=== PATIENT | male | born 1960 | race African-American/Black ===

== ENCOUNTER 2020-05-16 06:00 | Inpatient (IN) | payer OTHER ==
[~2020-05-16] VITALS: Ht 185.4 cm; Wt 90.7 kg
--- NOTE | 2020-05-16 06:20 | NUR ---
ED Nurse Note: PT walked in from home. He is very weak and has trouble transfering and walking. He is axox4, His vitals are stable on RA. He states that he had left flank pain with pain 8/10 starting at 23:00 the night previous. He is only speaking in one word answers during assement. He denies n/v/d
--- NOTE | 2020-05-16 06:29 | Emergency Room Report ---
History of Present Illness General Chief Complaint: Dyspnea/Respdistress Source: Patient Present Illness HPI The patient presents complaining about left flank pain. He also states that at 11 PM he was short of breath. He is not taking medication. He rates the pain 8/10 at this time. Aching. He says that a month ago he was treated for urinary tract infection. He had antibiotics at that time. Patient denies chest pain, productive cough, sore throat, nausea, vomiting, diarrhea, dysuria. The patient denies exposure to Covid positive contacts. Allergies: Coded Allergies: No Known Allergies (Unverified , 05/16/20) COVID-19 Screening Contact w/high risk pt: No Experienced COVID-19 symptoms?: Yes COVID-19 Testing performed COFFEE TASTER: No Patient History Past Medical History: see triage record Social History: Denies: smoking, alcohol use, drug use Social History Narrative Works security Reviewed Nursing Documentation: PMH: Agreed; PSxH: Agreed Nursing Documentation-PMH Past Medical History: No History, Except For Hx Asthma: Yes Review of Systems All Other Systems: negative except mentioned in HPI Physical Exam Vital Signs Date Time Temp Pulse Resp B/P (MAP) Pulse Ox O2 Delivery O2 Flow Rate FiO2 05/16/20 06:13 99.0 109 30 159/70 (99) 95 Room Air Room air pulse oximetry at bedside is 98% which is normal. Sp02 EP Interpretation: reviewed, normal General Appearance: well appearing, no apparent distress, GCS 15 Head: normocephalic Eyes: bilateral eye normal inspection, bilateral eye PERRL, bilateral eye EOMI ENT: moist mucus membranes Neck: supple Respiratory: lungs clear, normal breath sounds Cardiovascular #1: no edema, tachycardia Cardiovascular #2: 2+ radial (R) Gastrointestinal: normal inspection, normal bowel sounds, non tender, no mass, overweight - Somewhat protuberant Genitourinary: CVA tenderness (L) Musculoskeletal: back normal, normal range of motion, gait/station normal Neurologic: alert, oriented x3, grossly normal Psychiatric: mood/affect normal Skin: no rash, warm/dry Medical Decision Making Diagnostic Impression: Primary Impression: Sepsis Qualified Codes: A41.9 - Sepsis, unspecified organism Additional Impressions: COVID-19 virus detected Pyelonephritis ER Course Patient presents with left-sided flank pain with history of urinary tract infection. Differential includes pyonephritis, renal stone, diverticulitis, aneurysm amongst others. Based on the history urinary tract infection and kaleb lonephritis is high in the list. Patient evaluated with EKG, chest x-ray, CT of the abdomen and pelvis and labs. Patient treated with IV hydration and analgesia initially. Will be a low threshold for beginning antibiotics. EKG ST RBBB LAD. CXR poor inspiration. WBC normal but left shift. Elevated BUN. Elevated CPK. Covid test positive. Called with elevated lactate 735 - antibiotics ordered. No longer tachycardic. Admit. Patient improved. Patient insisting that he goes home. Difficulty with la nguage. 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 Also communicated condition to his son. Contacted admitting physician.[phone] Repeat lactate normal. Laboratory Tests Test 05/16/20 06:20 05/16/20 09:00 05/16/20 09:06 05/17/20 05:35 White Blood Count 8.0 K/UL (4.8-10.8) 10.3 K/UL (4.8-10.8) Red Blood Count 4.32 M/UL (4.70-6.10) L 4.22 M/UL (4.70-6.10) L Hemoglobin 13.8 G/DL (14.2-18.0) L 13.2 G/DL (14.2-18.0) L Hematocrit 39.4 % (42.0-52.0) L 39.0 % (42.0-52.0) L Mean Corpuscular Volume 91 FL (80-99) 92 FL (80-99) Mean Corpuscular Hemoglobin 31.8 PG (27.0-31.0) H 31.3 PG (27.0-31.0) H Mean Corpuscular Hemoglobin Concent 34.9 G/DL (32.0-36.0) 33.8 G/DL (32.0-36.0) Red Cell Distribution Width 12.1 % (11.6-14.8) 12.9 % (11.6-14.8) Platelet Count 194 K/UL (150-450) 172 K/UL (150-450) Mean Platelet Volume 6.6 FL (6.5-10.1) 6.8 FL (6.5-10.1) Neutrophils (%) (Auto) % (45.0-75.0) 83.2 % (45.0-75.0) H Lymphocytes (%) (Auto) % (20.0-45.0) 11.2 % (20.0-45.0) L Monocytes (%) (Auto) % (1.0-10.0) 4.9 % (1.0-10.0) Eosinophils (%) (Auto) % (0.0-3.0) 0.0 % (0.0-3.0) Basophils (%) (Auto) % (0.0-2.0) 0.6 % (0.0-2.0) Differential Total Cells Counted 100 Neutrophils % (Manual) 86 % (45-75) H Lymphocytes % (Manual) 11 % (20-45) L Monocytes % (Manual) 3 % (1-10) Eosinophils % (Manual) 0 % (0-3) Basophils % (Manual) 0 % (0-2) Band Neutrophils 0 % (0-8) Platelet Estimate Adequate Platelet Morphology Normal Red Blood Cell Morphology Normal Prothrombin Time 11.2 SEC (9.30-11.50) Prothrombin Time INR 1.0 (0.9-1.1) Activated Partial Thromboplast Time 28 SEC (23-33) D-Dimer 0.50 mg/L FEU (0.00-0.49) H Sodium Level 133 MMOL/L (136-145) L 135 MMOL/L (136-145) L Potassium Level 3.8 MMOL/L (3.5-5.1) 3.6 MMOL/L (3.5-5.1) Chloride Level 101 MMOL/L (98-107) 103 MMOL/L (98-107) Carbon Dioxide Level 23 MMOL/L (21-32) 25 MMOL/L (21-32) Anion Gap 9 mmol/L (5-15) 7 mmol/L (5-15) Blood Urea Nitrogen 21 mg/dL (7-18) H 14 mg/dL (7-18) Creatinine 1.3 MG/DL (0.55-1.30) 1.1 MG/DL (0.55-1.30) Estimated Glomerular Filtration Rate > 60 mL/min (>60) > 60 mL/min (>60) Glucose Level 136 MG/DL (74-106) H 128 MG/DL (74-106) H Lactic Acid Level 2.40 mmol/L (0.4-2.0) H 1.70 mmol/L (0.66-2.22) Calcium Level 8.5 MG/DL (8.5-10.1) 8.3 MG/DL (8.5-10.1) L Magnesium Level 1.6 MG/DL (1.8-2.4) L 2.4 MG/DL (1.8-2.4) Ferritin 260 NG/ML (8-388) Total Bilirubin 0.5 MG/DL (0.2-1.0) 0.4 MG/DL (0.2-1.0) Aspartate Amino Transferase (AST) 29 U/L (15-37) 31 U/L (15-37) Alanine Aminotransferase (ALT) 31 U/L (12-78) 25 U/L (12-78) Alkaline Phosphatase 96 U/L (46-116) 79 U/L (46-116) Lactate Dehydrogenase 176 U/L (81-234) Total Creatine Kinase 573 U/L (26-308) H Troponin I 0.000 ng/mL (0.000-0.056) C-Reactive Protein, Quantitative 3.5 mg/dL (0.00-0.90) H 20.9 mg/dL (0.00-0.90) H Pro-B-Type Natriuretic Peptide 20 pg/mL (0-125) 279 pg/mL (0-125) H Total Protein 7.9 G/DL (6.4-8.2) 7.3 G/DL (6.4-8.2) Albumin 3.5 G/DL (3.4-5.0) 3.0 G/DL (3.4-5.0) L Globulin 4.4 g/dL 4.3 g/dL Albumin/Globulin Ratio 0.8 (1.0-2.7) L 0.7 (1.0-2.7) L Lipase 198 U/L (73-393) Urine Color Pale yellow Urine Appearance Slightly cloudy Urine pH 7 (4.5-8.0) Urine Specific [place] 1.005 (1.005-1.035) Urine Protein 1+ (NEGATIVE) H Urine Glucose (UA) Negative (NEGATIVE) Urine Ketones Negative (NEGATIVE) Urine Blood 3+ (NEGATIVE) H Urine Nitrite Positive (NEGATIVE) H Urine Bilirubin Negative (NEGATIVE) Urine Urobilinogen Normal MG/DL (0.0-1.0) Urine Leukocyte Esterase 2+ (NEGATIVE) H Urine RBC 2-4 /HPF (0 - 0) H Urine WBC 10-15 /HPF (0 - 0) H Urine Squamous Epithelial Cells Few /LPF (NONE/OCC) Urine Bacteria Many /HPF (NONE) H Hemoglobin A1c 5.8 % (4.3-6.0) Uric Acid 4.4 MG/DL (2.6-7.2) Phosphorus Level 2.9 MG/DL (2.5-4.9) Gamma Glutamyl Transpeptidase 86 U/L (5-85) H Thyroid Stimulating Hormone (TSH) 1.537 uiU/mL (0.358-3.740) Microbiology Date/Time Source Procedure Growth Status 05/16/20 07:09 Nasopharynx SARS-CoV-2 RdRp Gene Assay - Final Complete EKG Diagnostic Results Rate: tachycardiac Rhythm: NSR ST Segments: no acute changes - LAD, RBBB Rhythm Strip Diag. Results Rhythm: no PVC's, no ectopy, other - Sinus tachycardia 103 Chest X-Ray Diagnostic Results Chest X-Ray Diagnostic Results : Chest X-Ray Ordered: Yes # of Views/Limited/Complete: 1 View Indication: Shortness of Breath EP Interpretation: Yes Interpretation: no effusion, no pneumothorax, other - Poor inspiration film Impression: Other Electronically Signed by: Electronically signed by Fili Meneses MD CT/MRI/US Diagnostic Results CT/MRI/US Diagnostic Results : Imaging Test Ordered: abd/pelvis Impression IMPRESSION: There is focal perfusion defect in the posterior cortex of the upper pole suspicious for pyelonephritis. Last Vital Signs Date Time Temp Pulse Resp B/P (MAP) Pulse Ox O2 Delivery O2 Flow Rate FiO2 05/16/20 23:54 100.3 91 18 144/63 (90) 96 05/16/20 21:00 Nasal Cannula 2.0 Status: improved Disposition: ADMITTED INPATIENT Condition: Serious Referrals: [facility],REFERRING (PCP) Fili Meneses MD May 16, 2020 06:29
[2020-05-16] MEDS ORDERED: Morphine Sulfate 4mg/ml Inj (IV USE ONLY) IVP ONE (06:30)
[2020-05-16] MEDS ORDERED: Omnipaque-300 100ml vial INJ PRN (06:30)
--- NOTE | 2020-05-16 06:51 | NUR ---
ED Nurse Note: Placed IV, sent labs, Xray done at bedside, IV medications administered. Pt is resting comfortably on room air, breathing is even and unlabored.
[2020-05-16 06:53] VITALS: BP 152/68
[2020-05-16 06:56] LABS: HEMATOCRIT 39.4 % (42.0-52.0); HEMOGLOBIN 13.8 G/DL (14.2-18.0); MEAN CORPUSCULAR VOLUME 91 FL (80-99); PLATELET COUNT 194 K/UL (150-450); RED BLOOD COUNT 4.32 M/UL (4.70-6.10); RED CELL DISTRIBUTION WIDTH 12.1 % (11.6-14.8)
[2020-05-16 07:08] LABS: ANION GAP 9 mmol/L (5-15); BLOOD UREA NITROGEN 21 mg/dL (7-18); CALCIUM 8.5 MG/DL (8.5-10.1); CARBON DIOXIDE 23 MMOL/L (21-32); CHLORIDE 101 MMOL/L (98-107); CREATININE 1.3 MG/DL (0.55-1.30); POTASSIUM 3.8 MMOL/L (3.5-5.1); SODIUM 133 MMOL/L (136-145)
--- NOTE | 2020-05-16 07:10 | Diagnostic Imaging Report ---
EXAM: XR Chest, 1 View CLINICAL HISTORY: FLANK TECHNIQUE: Frontal view of the chest. COMPARISON: No relevant prior studies available. FINDINGS: Lungs: There are patchy bilateral ground glass alveolar infiltrates, most prominent in the lung bases suspicious for pneumonia. Covid 19 not excluded. Pleural space: Unremarkable. No pneumothorax. Heart: Unremarkable. No cardiomegaly. Mediastinum: Unremarkable. Bones/joints: Unremarkable. IMPRESSION: No acute findings in the chest.
--- NOTE | 2020-05-16 07:13 | NUR ---
HAND-OFF: Report given to Anni Keita RN.
[2020-05-16 07:24] LABS: ALANINE AMINOTRANSFERASE 31 U/L (12-78); ALBUMIN 3.5 G/DL (3.4-5.0); ALBUMIN/GLOBULIN RATIO 0.8 (1.0-2.7); ALKALINE PHOSPHATASE 96 U/L (46-116); ASPARTATE AMINO TRANSFERASE 29 U/L (15-37); BILIRUBIN,TOTAL 0.5 MG/DL (0.2-1.0); CREATINE KINASE 573 U/L (26-308); FERRITIN 260 NG/ML (8-388); LACTATE DEHYDROGENASE 176 U/L (81-234)
[2020-05-16] MEDS ORDERED: Piperacillin/Tazobactam 3.375 GM in NS 110 ML IVPB ONE (07:45)
--- NOTE | 2020-05-16 08:07 | NUR ---
ED Nurse Note: pt. went down to radiology
--- NOTE | 2020-05-16 08:20 | NUR ---
ED Nurse Note: pt. came back from radiology
--- NOTE | 2020-05-16 08:50 | Diagnostic Imaging Report ---
EXAM: CT Abdomen and Pelvis With Intravenous Contrast CLINICAL HISTORY: FLANK TECHNIQUE: Axial computed tomography images of the abdomen and pelvis with intravenous contrast. CTDI is 8 mGy and DLP is 449 mGy-cm. One or more of the following dose reduction techniques were used: automated exposure control, adjustment of the mA and/or kV according to patient size, use of iterative reconstruction technique. COMPARISON: No relevant prior studies available. FINDINGS: Lung bases: There are mild bibasilar infiltrates, likely representing atelectasis. There is calcified pleural plaque in the right lung base. ABDOMEN: Liver: Unremarkable. No mass. Gallbladder and bile ducts: Unremarkable. No calcified stones. No ductal dilation. Pancreas: Unremarkable. No mass. No ductal dilation. Spleen: Unremarkable. No splenomegaly. Adrenals: Unremarkable. No mass. Kidneys and ureters: There is mild prominence of the left renal pelvis without evidence of urolithiasis or ureteral stone. There is focal perfusion defect in the posterior cortex of the upper pole suspicious for pyelonephritis. The right kidney appears unremarkable. Stomach and bowel: Unremarkable. No obstruction. No mucosal thickening. PELVIS: Appendix: No findings to suggest acute appendicitis. Bladder: Unremarkable. No mass. Reproductive: Unremarkable as visualized. ABDOMEN and PELVIS: Intraperitoneal space: Unremarkable. No free air. No significant fluid collection. Bones/joints: No acute fracture. No dislocation. Soft tissues: Unremarkable. Vasculature: Unremarkable. No abdominal aortic aneurysm. Lymph nodes: Unremarkable. No enlarged lymph nodes. IMPRESSION: There is focal perfusion defect in the posterior cortex of the upper pole suspicious for pyelonephritis.
--- NOTE | 2020-05-16 09:22 | NUR ---
ED Nurse Note: lactic acid reflux collected and sent down to lab
[2020-05-16 09:32] LABS: APPEARANCE,URINE SLIGHTLY CLOUDY; BILIRUBIN, URINE NEGATIVE (NEGATIVE); COLOR,URINE PALE YELLOW; GLUCOSE, URINE (UA) NEGATIVE (NEGATIVE); KETONES,URINE NEGATIVE (NEGATIVE); LEUKOCYTE ESTERASE ,URINE 2+ (NEGATIVE); NITRITE,URINE POSITIVE (NEGATIVE); PH,URINE 7 (4.5-8.0); PROTEIN,URINE 1+ (NEGATIVE); UROBILINOGEN,URINE NORMAL MG/DL (0.0-1.0)
[2020-05-16 09:43] VITALS: BP 150/73
--- NOTE | 2020-05-16 09:49 | NUR ---
ED Nurse Note: REPORT GIVEN TO NIECY KRUEGER
--- NOTE | 2020-05-16 10:00 | NUR ---
ED Nurse Note: TRANSPORTED PT. VIA [facility] WITH NIECY PICKETT WITH ALL PT.'S BELONGINGS. VSS
--- NOTE | 2020-05-16 11:27 | Consultation ---
Consult Note Consult Note DATE OF CONSULTATION: 05/16/2020 CONSULTING PHYSICIAN: Abram Dunne MD. ATTENDING PHYSICIAN: Dr. Santana REASON FOR CONSULTATION: COVID-19 positive HISTORY OF PRESENT ILLNESS: This is a 60-year-old male with past medical history of asthma and kidney infection, who presented to the ED for evaluation of left flank pain. Patient has language barrier and much of the information is obtained from the ER note and his EMR. He reported associated shortness of breath starting last night at around 11 PM. He reported taking no medication. He rated the pain 8 out of 10 in severity on arrival. He described the pain as aching in nature. He reported 1 month ago that he was treated with antibiotics for UTI. He denies chest pain, productive, cough sore throat, nausea, vomiting, diarrhea, or dysuria. Patient's initial EKG was notable for sinus tachycardia on arrival without ST segment changes. Patient tested positive for COVID-19 with rapid gene assay test. Initial chest x-ray showed patchy bilateral groundglass alveolar infiltrates most prominent in the lung bases suspicious for pneumonia. Abdomen and pelvis CT with contrast showed evidence for pyelonephritis. Patient symptoms improved in the ER and he insisted that he go home. Upon discussion of risks and benefits, he decided to stay and now he is admitted to the hospital for further management. Patient received IV hydration, analgesia, and antibiotics in the ER. PAST MEDICAL HISTORY: Asthma, kidney infection, recent UTI MEDICATIONS: Full list of home medication not available at this time ALLERGIES: No known allergies FAMILY HISTORY: Unknown PERSONAL/SOCIAL HISTORY: Denies smoking, alcohol use, drug use; works as a security shift supervisor REVIEW OF SYSTEMS: Negative except mentioned in HPI PHYSICAL EXAMINATION: VITAL SIGNS: Blood pressure 149/69, heart rate 81, respiratory rate 20, weight 90 kg, height 185 cm. General: Appears stated age, NAD in bed, normal work of breathing on room air HEENT: Head exam reveals that the head is normocephalic, atraumatic, he is sweating without deformity or unusual swelling. Pupils are PERRLA. CHEST AND LUNGS: Reveals clear, normal, symmetrical breath sounds with no adventitious sounds. CARDIOVASCULAR: Reveals normal S1, S2 without murmurs, rubs, or clicks. ABDOMEN: Obese, soft with no tenderness or organomegaly. RECTAL: Deferred. Genitourinary: mild CVA tenderness on the left MUSCULOSKELETAL: There is no tenderness to palpation. Range of motion is normal. NEUROLOGICAL: Alert and oriented x3 , nonfocal LABORATORY DATA: Laboratory testing shows WBC 8.0, hemoglobin 13.8, hematocrit 39.4. Chemistries show sodium 133, BUN 21, glucose 136, lactic acid 1.7, creatinine kinase 573, troponin 0, CRP 3.5 Coag panel D-dimer 0.5 Urinalysis shows 1+ protein, 3+ blood, positive nitrite, 2+ leuk esterase, presence of urine bacteria Assessment/Plan 1. COVID-19 pneumonia -Droplet isolation -Currently saturating well on room air with normal work of breathing; no indication for specific therapy for COVID-19 at this time -Continue monitor for hypoxemia, and provide supplemental oxygen as needed -Supportive care -Follow-up imaging if indicated 2. Respiratory distress on arrival; now improved on room air 2. Hypertension - per primary MD 3. Elevated inflammatory markers -We will initiate Lovenox for DVT prophylaxis 4. Hyponatremia -Per primary MD 5. Pyelonephritis -ID following 6. Sepsis The care for this patient was discussed with my supervising physician. Time spent for this case was approximately 31 minutes. Billy Ly May 16, 2020 11:27
[2020-05-16 12:00] VITALS: BP 123/60
--- NOTE | 2020-05-16 14:43 | Consultation ---
Consult Note Consult Note I am asked to evaluate the patient at the request of Dr. Mayberry for fluid and electrolyte management The patient presents complaining about left flank pain. He also states that at 11 PM he was short of breath. He is taking no medication. He rates the pain 8/10 at this time. Aching. He says that a month ago he was treated for urinary tract infection. He had antibiotics at that time. He is not taking medication at this time. Patient denies chest pain, productive cough, sore throat, nausea, vomiting, diarrhea, dysuria. 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 PHYSICAL EXAMINATION: VITAL SIGNS: Temperature 98.3, T-max is 100.3, pulse 87, blood pressure 137/84. GENERAL APPEARANCE: No acute distress. HEAD AND NECK: [place] conjunctivae. HEART: Normal rate. LUNGS: Clear. ABDOMEN: Soft. Left costovertebral tenderness. EXTREMITIES: No edema. NEUROLOGIC: He is awake, alert, and oriented x3. LABORATORY AND DIAGNOSTIC DATA: Blood culture, gram-negative rods. Urine culture, gram-negative rods. COVID-19 test was positive. WBC 10.3, hemoglobin 13.2, hematocrit 39, and platelet is 172,000. Sodium 133, potassium 3.6, chloride 103, bicarb 25, BUN 14, creatinine 1.1, Glucose 128. Lactic acid was 2.4 at the time of admission. UA showed wbc of 10-15, bacteria many, nitrite positive. Chest x-ray was negative. CT scan of abdomen and pelvis showed focal perfusion defect in the posterior cortex of the upper pole of the left kidney suspicious of pyelonephritis. . Assessment/Plan Hyponatremia Low magnesium Sepsis COVID-19 virus detected Pyelonephritis Sugg: Magnesium supplement Monitor electrolyte Saline bolus for low sodium Per orders Vladislav Torres MD May 16, 2020 14:43
[2020-05-16] MEDS ORDERED: HydrALAZINE 25mg tab ORAL PRN (15:00)
[2020-05-16 16:00] VITALS: BP 136/66
[2020-05-16] MEDS: D5NS 1,000 ML IV SCH (16:04)
[2020-05-16] MEDS ORDERED: FLOMAX0.4 MG ORAL (19:47)
[2020-05-16] MEDS ORDERED: AMITRIPTYLINE100 MG ORAL (19:47)
[2020-05-16] MEDS ORDERED: NEURONTIN800 MG ORAL (19:47)
[2020-05-16] MEDS ORDERED: NAPROXEN500 M2 ORAL (19:47)
[2020-05-16] MEDS ORDERED: MULTIVITAMINS1 EAC2 ORAL (19:47)
[2020-05-16] MEDS ORDERED: BENAZEPRIL HCL10 MG ORAL (19:47)
[2020-05-16] MEDS ORDERED: WELLBUTRIN XL150 MG ORAL (19:47)
--- NOTE | 2020-05-16 19:53 | NUR ---
NURSE HAND-OFF: Important Events on Shift:[] Patient Status: [] Diet: [] Pending Orders: [] Pending Results/Labs:[] Pending MD notification:[] Latest Vital Signs: Temperature 98.2 , Pulse 85 , B/P 136 /66 , Respiratory Rate 18 , O2 SAT 93 , Room Air, O2 Flow Rate . Vital Sign Comment: [] Latest Wooten Fall Score: 30 Fall Risk: Medium Risk Safety Measures: Call light Within Reach, Bed Alarm Zone 1, Side Rails Side Rails x1, Bed position Low and Locked. Fall Precautions: Yellow Socks Yellow Gown Door Sign Patient Fall Education Report given to [Katey].
[2020-05-16 20:00] VITALS: BP 132/64
--- NOTE | 2020-05-16 23:14 | History and Physical Report ---
DATE OF ADMISSION: 05/16/2020 HISTORY OF PRESENT ILLNESS: The patient came in with left flank pain. The patient was also short of breath. Denied cough. Denies nausea, vomiting, or diarrhea. Did have some chills. Denies chest pain as well. Denies shortness of breath. Denies sore throat. Denied vomiting, diarrhea, dysuria, as well. The patient has a history of COVID positive, but however, is admitted, found to have pyelonephritis, UTI, sepsis, and low magnesium, admitted for those reasons. PAST MEDICAL HISTORY: GERD, history of asthma, history of hypertension, history of BPH, history of chronic pain syndrome. PAST SURGICAL HISTORY: None. ALLERGIES: No known allergies. MEDICATIONS: Benazepril, gabapentin, multivitamin, and Flomax. FAMILY HISTORY: Noncontributory. SOCIAL HISTORY: No history of alcohol abuse. No history of drug abuse. Denies history of smoking. REVIEW OF SYSTEMS: HEENT: Denies headaches. RESPIRATORY: Denies shortness of breath. Denies cough. CARDIOVASCULAR: Denies chest pain. Denies orthopnea. GASTROINTESTINAL: Denies nausea, vomiting, or diarrhea. Does have flank pain. EXTREMITIES: Does have chronic pain syndrome. CENTRAL NERVOUS SYSTEM: Denies change in speech pattern. Denies weakness. PHYSICAL EXAMINATION: VITAL SIGNS: Temperature is 98, pulse is 81, blood pressure 123/60. HEENT: PERRLA. NECK: Supple. No lymphadenopathy. CHEST: Clear to auscultation CARDIOVASCULAR: Regular rate and rhythm. No murmurs or extra sounds. GASTROINTESTINAL: Soft, nontender, nondistended. No organomegaly. EXTREMITIES: No edema. Moves all four extremities. NEUROLOGICAL: Sensory intact to light touch. Reflexes equal on both sides. LABORATORY DATA: WBC of 8, hemoglobin of 13.8, platelets of 194,000. Sodium 133, potassium of 3.8, BUN of 21, creatinine of 1.3, glucose of 136. ASSESSMENT AND PLAN: Pyelonephritis, sepsis, hypomagnesemia, UTI, history of COVID positive. I have consulted Dr. Abram Dunne, Dr. Tino Armas, and Dr. Torres for the above-mentioned to further treatment and to help with the management of the above-mentioned abnormalities and symptoms. Ali Lavon Santana DR: ELLIOTT JOB#: [id number] CC:
[2020-05-16 23:54] VITALS: BP 144/63
[2020-05-17] VITALS (7 sets, daily range): BP systolic 130–147; BP diastolic 63–91
--- NOTE | 2020-05-17 04:45 | NUR ---
CHARGE NURSE NOTES: Received call from Microbiology Uli Cornelius. 2 blood cultures positive for gram negative rods. Per Uli, he will inform Dr. Santana/Niurka Yost CN informed primary care nurse NIECY Starks.
[2020-05-17 06:15] LABS: BASOPHILS % (AUTO) 0.6 % (0.0-2.0); HEMOGLOBIN 13.2 G/DL (14.2-18.0); LYMPHOCYTES % (AUTO) 11.2 % (20.0-45.0); MEAN CORPUSCULAR VOLUME 92 FL (80-99); MONOCYTES % (AUTO) 4.9 % (1.0-10.0); NEUTROPHILS % (AUTO) 83.2 % (45.0-75.0); PLATELET COUNT 172 K/UL (150-450); RED BLOOD COUNT 4.22 M/UL (4.70-6.10); RED CELL DISTRIBUTION WIDTH 12.9 % (11.6-14.8); WHITE BLOOD COUNT 10.3 K/UL (4.8-10.8)
[2020-05-17 06:42] LABS: ALANINE AMINOTRANSFERASE 25 U/L (12-78); ALBUMIN/GLOBULIN RATIO 0.7 (1.0-2.7); ALKALINE PHOSPHATASE 79 U/L (46-116); ANION GAP 7 mmol/L (5-15); ASPARTATE AMINO TRANSFERASE 31 U/L (15-37); BILIRUBIN,TOTAL 0.4 MG/DL (0.2-1.0); BLOOD UREA NITROGEN 14 mg/dL (7-18); CALCIUM 8.3 MG/DL (8.5-10.1); CARBON DIOXIDE 25 MMOL/L (21-32); CHLORIDE 103 MMOL/L (98-107); CREATININE 1.1 MG/DL (0.55-1.30); GAMMA GLUTAMYL TRANSPEPTIDASE 86 U/L (5-85); PHOSPHORUS 2.9 MG/DL (2.5-4.9); POTASSIUM 3.6 MMOL/L (3.5-5.1); SODIUM 135 MMOL/L (136-145)
--- NOTE | 2020-05-17 07:17 | NUR ---
HAND-OFF: Report given to Shala Hernandez RN/Minoo Aranda RN.
--- NOTE | 2020-05-17 07:20 | NUR ---
NURSE NOTES: Received report from Tereza PEMBERTON. Patient is in bed, A&O x4, does not seem to be in acute distress, reports no pain. Patient is on 2L NC. IV is on Right hand running IVF as ordered. Patient updated on care plan. Bed in lowest position, call light in reach, side rails up.
--- NOTE | 2020-05-17 08:37 | Pulmonology Progress Note ---
Subjective Interval Events: fever overnight Constitutional: Reports: fever, other - Tmax= 100.3 HEENT: Repors: no symptoms Respiratory: Reports: no symptoms Cardiovascular: Reports: no symptoms Gastrointestinal/Abdominal: Reports: no symptoms Allergies: Coded Allergies: No Known Allergies (Unverified , 05/16/20) Objective Last 24 Hour Vital Signs Date Time Temp Pulse Resp B/P (MAP) Pulse Ox O2 Delivery O2 Flow Rate FiO2 05/17/20 05:25 98.8 96 18 144/63 (90) 95 05/17/20 04:00 98.8 96 18 144/63 (90) 95 05/17/20 02:00 99.1 05/16/20 23:54 100.3 91 18 144/63 (90) 96 05/16/20 21:00 Nasal Cannula 2.0 05/16/20 20:00 100.1 94 17 132/64 (86) 95 05/16/20 18:20 98.2 05/16/20 16:00 98.0 85 18 136/66 (89) 93 05/16/20 12:20 Room Air 05/16/20 12:00 98.2 84 18 123/60 (81) 93 05/16/20 10:00 98.0 81 20 149/69 98 Room Air 05/16/20 09:43 98.2 83 16 150/73 97 Room Air Intake and Output 05/16/20 05/17/20 19:00 07:00 Intake Total 50 ml 1080 ml Output Total 900 ml Balance 50 ml 180 ml Intake Oral 480 ml IV Total 50 ml 600 ml Output Urine Total 900 ml # Voids 1 3 # Bowel Movements 1 General Appearance: no acute distress HEENT: atraumatic Respiratory: lungs clear Cardiovascular: normal rate, regular rhythm Abdomen: soft, non tender Microbiology Date/Time Source Procedure Growth Status 05/16/20 09:06 Urine,Clean Catch Urine Culture - Preliminary Gram Negative Melvin Resulted 05/16/20 07:09 Nasopharynx SARS-CoV-2 RdRp Gene Assay - Final Complete 05/16/20 06:20 Blood Blood Culture - Preliminary Gram Negative Melvin Resulted Laboratory Tests 05/16/20 09:00: Lactic Acid Level 1.70 05/16/20 09:06: Urine Color Pale yellow, Urine Appearance Slightly cloudy, Urine pH 7, Urine Specific D[place] 1.005, Urine Protein 1+H, Urine Glucose (UA) Negative, Urine Ketones Negative, Urine Blood 3+H, Urine Nitrite PositiveH, Urine Bilirubin Negative, Urine Urobilinogen Normal, Urine Leukocyte Esterase 2+H, Urine RBC 2- 4H, Urine WBC 10-15H, Urine Squamous Epithelial Cells Few, Urine Bacteria ManyH 05/17/20 05:35: White Blood Count 10.3, Red Blood Count 4.22L, Hemoglobin 13.2L, Hematocrit 39.0L, Mean Corpuscular Volume 92, Mean Corpuscular Hemoglobin 31.3H, Mean Corpuscular Hemoglobin Concent 33.8, Red Cell Distribution Width 12.9, Platelet Count 172, Mean Platelet Volume 6.8, Neutrophils (%) (Auto) 83.2H, Lymphocytes (%) (Auto) 11.2L, Monocytes (%) (Auto) 4.9, Eosinophils (%) (Auto) 0.0, Basophils (%) (Auto) 0.6, Sodium Level 135L, Potassium Level 3.6, Chloride Level 103, Carbon Dioxide Level 25, Anion Gap 7, Blood Urea Nitrogen 14, Creatinine 1.1, Estimat Glomerular Filtration Rate > 60, Glucose Level 128H, Hemoglobin A1c 5.8, Uric Acid 4.4, Calcium Level 8.3L, Phosphorus Level 2.9, Magnesium Level 2.4, Total Bilirubin 0.4, Gamma Glutamyl Transpeptidase 86H, Aspartate Amino Transf (AST/SGOT) 31, Alanine Aminotransferase (ALT/SGPT) 25, Alkaline Phosphatase 79, C-Reactive Protein, Quantitative 20.9H, Pro-B-Type Natriuretic Peptide 279H, Total Protein 7.3, Albumin 3.0L, Globulin 4.3, Albumin/Globulin Ratio 0.7L, Thyroid Stimulating Hormone (TSH) 1.537 Current Medications Medications (Trade) Dose Ordered Sig/Carson Route PRN Reason Start Time Stop Time Status Last Admin Dose Admin Acetaminophen (Tylenol) 650 mg Q4H PRN ORAL Mild Pain (Pain Scale 1-3) 05/16/20 11:30 06/15/20 11:29 05/17/20 01:10 Acetaminophen (Tylenol) 650 mg Q4H PRN ORAL Temp >100.5 05/16/20 11:30 06/15/20 11:29 Dextrose/Sodium Chloride 1,000 ml @ 50 mls/hr Q20H IV 05/16/20 15:00 06/15/20 14:59 05/16/20 16:04 Enoxaparin Sodium (Lovenox) 40 mg DAILY SUBQ 05/17/20 09:00 08/15/20 08:59 Famotidine (Pepcid) 20 mg BID ORAL 05/16/20 18:00 08/14/20 17:59 05/16/20 17:27 Hydralazine HCl (Apresoline) 25 mg Q4H PRN ORAL bp over 160 syst 05/16/20 15:00 08/14/20 14:59 Iohexol (OMNIPAQUE-300 100ml) 100 ml NOW PRN INJ Radiology Procedure 05/16/20 06:30 05/18/20 06:29 Assessment/Plan Assessment/Plan 1. COVID-19 pneumonia -Droplet isolation -Currently saturating well on room air with normal work of breathing; no indication for specific therapy for COVID-19 at this time -Continue monitor for hypoxemia, and provide supplemental oxygen as needed -Supportive care -Follow-up imaging if indicated 2. Respiratory distress on arrival; now improved on room air - pt is using low flow oxygen for comfort; saturates at 95% on room air 2. Hypertension - per primary MD 3. Elevated inflammatory markers -We will initiate Lovenox for DVT prophylaxis 4. Hyponatremia -Per primary MD 5. Pyelonephritis -ID following 6. Sepsis - ID following The care for this patient was discussed with my supervising physician. Time spent for this case was approximately 31 minutes. Billy Ly May 17, 2020 08:37
[2020-05-17] MEDS: Enoxaparin 40mg Inj SUBQ SCH (08:57)
--- NOTE | 2020-05-17 10:21 | Nephrology Progress Note ---
Assessment/Plan Problem List: (1) Dehydration (2) Electrolyte imbalance (3) COVID-19 virus detected (4) Pyelonephritis (5) Sepsis Assessment Hyponatremia Low magnesium Sepsis COVID-19 virus detected Pyelonephritis Plan May 17: Labs reviewed. Electrolytes stable. Continue per consultants. Previously: Magnesium supplement Monitor electrolyte Saline bolus for low sodium Per orders Subjective ROS Limited/Unobtainable: No Constitutional: Reports: malaise Objective Objective Last 24 Hour Vital Signs Date Time Temp Pulse Resp B/P (MAP) Pulse Ox O2 Delivery O2 Flow Rate FiO2 05/17/20 08:00 98.0 87 18 137/64 (88) 95 05/17/20 05:25 98.8 96 18 144/63 (90) 95 05/17/20 04:00 98.8 96 18 144/63 (90) 95 05/17/20 02:00 99.1 05/16/20 23:54 100.3 91 18 144/63 (90) 96 05/16/20 21:00 Nasal Cannula 2.0 05/16/20 20:00 100.1 94 17 132/64 (86) 95 05/16/20 18:20 98.2 05/16/20 16:00 98.0 85 18 136/66 (89) 93 05/16/20 12:20 Room Air 05/16/20 12:00 98.2 84 18 123/60 (81) 93 Intake and Output 05/16/20 05/17/20 19:00 07:00 Intake Total 50 ml 1080 ml Output Total 900 ml Balance 50 ml 180 ml Intake Oral 480 ml IV Total 50 ml 600 ml Output Urine Total 900 ml # Voids 1 3 # Bowel Movements 1 Current Medications Medications (Trade) Dose Ordered Sig/Carson Route PRN Reason Start Time Stop Time Status Last Admin Dose Admin Acetaminophen (Tylenol) 650 mg Q4H PRN ORAL Mild Pain (Pain Scale 1-3) 05/16/20 11:30 06/15/20 11:29 05/17/20 01:10 Acetaminophen (Tylenol) 650 mg Q4H PRN ORAL Temp >100.5 05/16/20 11:30 06/15/20 11:29 Dextrose/Sodium Chloride 1,000 ml @ 50 mls/hr Q20H IV 05/16/20 15:00 2/16/21 14:59 05/16/20 16:04 Enoxaparin Sodium (Lovenox) 40 mg DAILY SUBQ 05/17/20 09:00 08/15/20 08:59 05/17/20 08:57 Famotidine (Pepcid) 20 mg BID ORAL 05/16/20 18:00 08/14/20 17:59 05/17/20 08:57 Hydralazine HCl (Apresoline) 25 mg Q4H PRN ORAL bp over 160 syst 05/16/20 15:00 08/14/20 14:59 Iohexol (OMNIPAQUE-300 100ml) 100 ml NOW PRN INJ Radiology Procedure 05/16/20 06:30 05/18/20 06:29 Laboratory Tests 05/17/20 05:35: White Blood Count 10.3, Red Blood Count 4.22L, Hemoglobin 13.2L, Hematocrit 39.0L, Mean Corpuscular Volume 92, Mean Corpuscular Hemoglobin 31.3H, Mean Corpuscular Hemoglobin Concent 33.8, Red Cell Distribution Width 12.9, Platelet Count 172, Mean Platelet Volume 6.8, Neutrophils (%) (Auto) 83.2H, Lymphocytes (%) (Auto) 11.2L, Monocytes (%) (Auto) 4.9, Eosinophils (%) (Auto) 0.0, Basophils (%) (Auto) 0.6, Sodium Level 135L, Potassium Level 3.6, Chloride Level 103, Carbon Dioxide Level 25, Anion Gap 7, Blood Urea Nitrogen 14, Creatinine 1.1, Estimat Glomerular Filtration Rate > 60, Glucose Level 128H, Hemoglobin A1c 5.8, Uric Acid 4.4, Calcium Level 8.3L, Phosphorus Level 2.9, Magnesium Level 2.4, Total Bilirubin 0.4, Gamma Glutamyl Transpeptidase 86H, Aspartate Amino Transf (AST/SGOT) 31, Alanine Aminotransferase (ALT/SGPT) 25, Alkaline Phosphatase 79, C-Reactive Protein, Quantitative 20.9H, Pro-B-Type Natriuretic Peptide 279H, Total Protein 7.3, Albumin 3.0L, Globulin 4.3, Albumin/Globulin Ratio 0.7L, Thyroid Stimulating Hormone (TSH) 1.537 Height (Feet): 6 Height (Inches): 1.00 Weight (Pounds): 200 General Appearance: no apparent distress Cardiovascular: normal rate Respiratory/Chest: decreased breath sounds Abdomen: soft Vladislav Torres MD May 17, 2020 10:21
[2020-05-17] MEDS: D5NS 1,000 ML IV SCH (11:18)
[2020-05-17] MEDS: cefTRIAXone 2 GM in D5W 110 ML IVPB SCH (12:55)
--- NOTE | 2020-05-17 13:31 | NUR ---
CASE MANAGEMENT:INITIAL REVIEW 60 YR OLD MALE FROM HOME CC;DYSPNEA. RESPIRATORY DISTRESS. SI;COVID-19 PNEUMONIA. SEPSIS. PYELONEPHRITIS. 100.3 109 30 159/70 95% ON RA NA- 133 BUN+ 21 MAG- 1.6 TCK+ 573 CRP+ 3.5 D-DIMER+ 0.50 UA+ PROTEIN 1+, BLOOD 3+, NITRITE+, LEUKOCYTE ESTERASE 2+ RBC+ 2-4, WBC+ 10-15, BACTERIA~MANY COVID RAPID ~ POSITIVE ABD/PELVIS CT ~ There is focal perfusion defect in the posterior cortex of the upper pole suspicious for pyelonephritis. CXR ~ No acute findings in the chest. IS;IVF NS BOLUS ZOFRAN IV MORPHINE SULFATE IV TYLENOL PO ZOSYN IV LEVAQUIN IV ADMITTED TO MED SURG MED SURG STATUS DCP;PENDING HOSPITAL STAY
--- NOTE | 2020-05-17 16:14 | Consultation ---
DATE OF CONSULTATION: 05/17/2020 INFECTIOUS DISEASES CONSULTATION CONSULTING PHYSICIAN: Tino Armas MD PRIMARY ATTENDING PHYSICIAN: Julio César Santana MD REASON FOR CONSULTATION: Gram-negative sepsis, pyelonephritis, COVID-19, and HIV. HISTORY OF PRESENT ILLNESS: This is a 60-year-old male admitted yesterday from home complaining of left flank pain, 8/10, and tachycardia. He has history of UTI months before admission. He has history of HIV. PAST MEDICAL HISTORY: HIV since 5 years ago, states the disease is under control. He has BPH, hypertension, and depression. ALLERGIES: No known drug allergies. MEDICATIONS: Enoxaparin, famotidine, hydralazine, and Tylenol. Got a dose of Levaquin and Zosyn yesterday in the ER. SOCIAL HISTORY: Denies alcohol, drug abuse, or smoking. He originally is from [facility]. REVIEW OF SYSTEMS: Low-grade fever. No nausea. No vomiting. No coughing. No shortness of breath. He has left flank pain. PHYSICAL EXAMINATION: VITAL SIGNS: Temperature 98.3, T-max is 100.3, pulse 87, blood pressure 137/84. GENERAL APPEARANCE: No acute distress. HEAD AND NECK: [place] conjunctivae. HEART: Normal rate. LUNGS: Clear. ABDOMEN: Soft. Left costovertebral tenderness. EXTREMITIES: No edema. NEUROLOGIC: He is awake, alert, and oriented x3. LABORATORY AND DIAGNOSTIC DATA: Blood culture, gram-negative rods. Urine culture, gram-negative rods. COVID-19 test was positive. WBC 10.3, hemoglobin 13.2, hematocrit 39, and platelet is 172,000. Sodium 135, potassium 3.6, chloride 103, bicarb 25, BUN 14, creatinine 1.1, Glucose 128. Lactic acid was 2.4 at the time of admission. UA showed wbc of 10-15, bacteria many, nitrite positive. Chest x-ray was negative. CT scan of abdomen and pelvis showed focal perfusion defect in the posterior cortex of the upper pole of the left kidney suspicious of pyelonephritis. IMPRESSION: 1. Gram-negative sepsis. 2. Pyelonephritis. 3. COVID-positive, likely mild disease or recent infection. 4. HIV. 5. BPH. 6. Depression. 7. Acidosis. 8. Hypertension. RECOMMENDATION: The patient was started on ceftriaxone. We will follow up the culture. The patient's family are supposed to bring up HIV medication to the hospital, that will be started when we receive them. At the end of my exam, I thank Dr. Santana for involving me in the care of this patient. Tino Armas M.D. DR: Mauro JOB#: [id number] CC: CHELO
--- NOTE | 2020-05-17 19:10 | NUR ---
NURSE HAND-OFF: Important Events on Shift:[Started ceftriaxone 2 gm, started home meds, temp 99.9] Patient Status: [stable] Diet: [reg] Pending Orders: [] Pending Results/Labs:[] Pending MD notification:[] Latest Vital Signs: Temperature 97.8 , Pulse 79 , B/P 130 /66 , Respiratory Rate 18 , O2 SAT 98 , Room Air, O2 Flow Rate 2.0 . Vital Sign Comment: [] Latest Wooten Fall Score: 30 Fall Risk: Medium Risk Safety Measures: Call light Within Reach, Bed Alarm Zone 2, Side Rails Side Rails x2, Bed position Low and Locked. Fall Precautions: Yellow Socks Report given to [Bill PEMBERTON].
--- NOTE | 2020-05-17 20:00 | NUR ---
NURSE NOTES: Patient received in bed, aox4, in room air, appears fatigue but in no acute distress at this time. Refusing dinner. IV is intact and patent. Will continue to monitor
--- NOTE | 2020-05-17 20:20 | NUR ---
NURSE NOTES: Family brought home medications. Verified with patient re: HIV medications Prezcobix and Odefsey. Patient insisted to keep these medications at bedside and he wants to take them himself. Explained to patient hospital policy regarding medications at bedside. Patient insisted that he spoke with the doctor and the doctor said its okay for him to take it himself. Spoke with Dr. Tino Armas and stated that it is okay to keep HIV medications at bedside and for patient to take them independently. Patient was provided his own medications at bedside.
[2020-05-17] MEDS: Tamsulosin 0.4mg cap ORAL SCH (20:50)
[2020-05-17] MEDS ORDERED: odefsey PO (21:10)
[2020-05-17] MEDS ORDERED: PREZCOBIX 8001 EACH PO (21:10)
--- NOTE | 2020-05-17 21:57 | General Progress Note ---
Subjective ROS Limited/Unobtainable: Yes Allergies: Coded Allergies: No Known Allergies (Unverified , 05/16/20) Objective Last 24 Hour Vital Signs Date Time Temp Pulse Resp B/P (MAP) Pulse Ox O2 Delivery O2 Flow Rate FiO2 05/17/20 20:00 99.4 93 18 147/91 (109) 92 05/17/20 16:00 97.8 79 18 130/66 (87) 98 05/17/20 12:00 99.9 89 18 133/63 (86) 98 05/17/20 09:00 Nasal Cannula 2.0 05/17/20 08:00 98.0 87 18 137/64 (88) 95 05/17/20 05:25 98.8 96 18 144/63 (90) 95 05/17/20 04:00 98.8 96 18 144/63 (90) 95 05/17/20 02:00 99.1 05/16/20 23:54 100.3 91 18 144/63 (90) 96 Intake and Output 05/16/20 05/17/20 19:00 07:00 Intake Total 50 ml 1080 ml Output Total 900 ml Balance 50 ml 180 ml Intake Oral 480 ml IV Total 50 ml 600 ml Output Urine Total 900 ml # Voids 1 3 # Bowel Movements 1 Laboratory Tests 05/17/20 05:35: White Blood Count 10.3, Red Blood Count 4.22L, Hemoglobin 13.2L, Hematocrit 39.0L, Mean Corpuscular Volume 92, Mean Corpuscular Hemoglobin 31.3H, Mean Corpuscular Hemoglobin Concent 33.8, Red Cell Distribution Width 12.9, Platelet Count 172, Mean Platelet Volume 6.8, Neutrophils (%) (Auto) 83.2H, Lymphocytes (%) (Auto) 11.2L, Monocytes (%) (Auto) 4.9, Eosinophils (%) (Auto) 0.0, Basophils (%) (Auto) 0.6, Sodium Level 135L, Potassium Level 3.6, Chloride Level 103, Carbon Dioxide Level 25, Anion Gap 7, Blood Urea Nitrogen 14, Creatinine 1.1, Estimat Glomerular Filtration Rate > 60, Glucose Level 128H, Hemoglobin A1c 5.8, Uric Acid 4.4, Calcium Level 8.3L, Phosphorus Level 2.9, Magnesium Level 2.4, Total Bilirubin 0.4, Gamma Glutamyl Transpeptidase 86H, Aspartate Amino Transf (AST/SGOT) 31, Alanine Aminotransferase (ALT/SGPT) 25, Alkaline Phosphatase 79, C-Reactive Protein, Quantitative 20.9H, Pro-B-Type Natriuretic Peptide 279H, Total Protein 7.3, Albumin 3.0L, Globulin 4.3, Albumin/Globulin Ratio 0.7L, Thyroid Stimulating Hormone (TSH) 1.537 Height (Feet): 6 Height (Inches): 1.00 Weight (Pounds): 200 Assessment/Plan Problem List: (1) Pyelonephritis ICD Codes: N12 - Tubulo-interstitial nephritis, not specified as acute or chronic SNOMED: 49432681 (2) COVID-19 virus detected ICD Codes: U07.1 - COVID-19 SNOMED: 9778700158956912 (3) Dehydration ICD Codes: E86.0 - Dehydration SNOMED: 03596723 (4) Electrolyte imbalance ICD Codes: E87.8 - Other disorders of electrolyte and fluid balance, not elsewhere classified SNOMED: 983873103 (5) Sepsis ICD Codes: A41.9 - Sepsis, unspecified organism SNOMED: 07103951 Qualifiers: Qualified Codes: A41.9 - Sepsis, unspecified organism Status: progressing Assessment/Plan: afebrile nac covid + resp insuff sepsis lyte abnormlaity pyleonephritis Julio César Santana MD May 17, 2020 21:57
--- NOTE | 2020-05-17 23:36 | NUR ---
NURSE NOTES: Pt temp 100.0. Parameters not met for tylenol. Cooling measures offered. Patient was wearing his sweater. Sweater removed. Will recheck.
[2020-05-18 04:00] VITALS: BP 115/68
[2020-05-18] MEDS: D5NS 1,000 ML IV SCH (05:48)
--- NOTE | 2020-05-18 07:11 | NUR ---
NURSE HAND-OFF: Important Events on Shift:[2 HIV medications at bedside. had fever, resolved with tylenol] Patient Status: [stable] Diet: [Regular] Pending Orders: [] Pending Results/Labs:[] Pending MD notification:[] Latest Vital Signs: Temperature 98.0 , Pulse 95 , B/P 115 /68 , Respiratory Rate 18 , O2 SAT 94 , Room Air, O2 Flow Rate 2.0 . Vital Sign Comment: [] Latest Wooten Fall Score: 45 Fall Risk: High Risk Safety Measures: Call light Within Reach, Bed Alarm Zone 2, Side Rails Side Rails x2, Bed position Low and Locked. Fall Precautions: Yellow Socks Report given to [Shala Loo RN].
--- NOTE | 2020-05-18 07:12 | NUR ---
NURSE NOTES: Received report from Bill PEMBERTON. Patient is awake n bed A&O x4, no acute distress, eating breakfast. On room air, no SOB, weak cough. Updated on care plan. Bed in lowest position, call light in reach, side rails up.
[2020-05-18 08:00] VITALS: BP 127/65
[2020-05-18] MEDS: BuPROPion XL 150mg tab ORAL SCH (08:10)
[2020-05-18] MEDS: Benazepril 10mg tab ORAL SCH (08:11)
[2020-05-18] MEDS: Enoxaparin 40mg Inj SUBQ SCH (08:12)
--- NOTE | 2020-05-18 11:33 | Nephrology Progress Note ---
Assessment/Plan Problem List: (1) Dehydration (2) Electrolyte imbalance (3) COVID-19 virus detected (4) Pyelonephritis (5) Sepsis Assessment Hyponatremia Low magnesium Sepsis COVID-19 virus detected Pyelonephritis Plan May 18: No labs drawn today. Continue to monitor electrolytes and renal parameters. Medication list reviewed. May 17: Labs reviewed. Electrolytes stable. Continue per consultants. Previously: Magnesium supplement Monitor electrolyte Saline bolus for low sodium Per orders Subjective ROS Limited/Unobtainable: No Constitutional: Reports: malaise Objective Objective Last 24 Hour Vital Signs Date Time Temp Pulse Resp B/P (MAP) Pulse Ox O2 Delivery O2 Flow Rate FiO2 05/18/20 09:00 Nasal Cannula 2.0 05/18/20 08:11 127/65 05/18/20 08:00 98.1 75 18 127/65 (85) 94 05/18/20 04:49 98.0 05/18/20 04:00 100.4 95 18 115/68 (84) 94 05/17/20 23:34 100.0 93 18 147/67 (93) 92 05/17/20 21:00 Nasal Cannula 2.0 05/17/20 20:00 99.4 93 18 147/91 (109) 92 05/17/20 16:00 97.8 79 18 130/66 (87) 98 05/17/20 12:00 99.9 89 18 133/63 (86) 98 Intake and Output 05/17/20 05/18/20 19:00 07:00 Intake Total 360 ml 1100 ml Balance 360 ml 1100 ml Intake Oral 360 ml 500 ml IV Total 600 ml # Voids 3 3 No labs drawn today Height (Feet): 6 Height (Inches): 1.00 Weight (Pounds): 200 General Appearance: no apparent distress Cardiovascular: tachycardia Respiratory/Chest: decreased breath sounds Abdomen: soft Vladislav Torres MD May 18, 2020 11:33
[2020-05-18 12:00] VITALS: BP 136/67
--- NOTE | 2020-05-18 12:26 | NUR ---
CASE MANAGEMENT:REVIEW SI;COVID PNEUMONIA. PYELONEPHRITIS. 100.4 95 18 136/67 94% 2L NC IS;ROCEPHIN IV Q24 LOVENOX SQ QD IVF D5NS @ 50 ML/HR TYLENOL PO PEPCID PO BID MED SURG STATUS DCP;FROM HOME
--- NOTE | 2020-05-18 12:49 | Pulmonology Progress Note ---
Subjective ROS Limited/Unobtainable: No Interval Events: fever overnight Constitutional: Reports: fever, other - Tmax= 100.4 HEENT: Repors: no symptoms Respiratory: Reports: no symptoms Cardiovascular: Reports: no symptoms Gastrointestinal/Abdominal: Reports: no symptoms Allergies: Coded Allergies: No Known Allergies (Unverified , 05/16/20) Objective Last 24 Hour Vital Signs Date Time Temp Pulse Resp B/P (MAP) Pulse Ox O2 Delivery O2 Flow Rate FiO2 05/18/20 12:00 97.9 88 18 136/67 (90) 94 05/18/20 09:00 Nasal Cannula 2.0 05/18/20 08:11 127/65 05/18/20 08:00 98.1 75 18 127/65 (85) 94 05/18/20 04:49 98.0 05/18/20 04:00 100.4 95 18 115/68 (84) 94 05/17/20 23:34 100.0 93 18 147/67 (93) 92 05/17/20 21:00 Nasal Cannula 2.0 05/17/20 20:00 99.4 93 18 147/91 (109) 92 05/17/20 16:00 97.8 79 18 130/66 (87) 98 Intake and Output 05/17/20 05/18/20 19:00 07:00 Intake Total 360 ml 1100 ml Balance 360 ml 1100 ml Intake Oral 360 ml 500 ml IV Total 600 ml # Voids 3 3 General Appearance: no acute distress HEENT: atraumatic Respiratory: lungs clear Cardiovascular: normal rate, regular rhythm Abdomen: soft, non tender Microbiology Date/Time Source Procedure Growth Status 05/16/20 09:06 Urine,Clean Catch Urine Culture - Final Escherichia Coli Complete 05/16/20 07:09 Nasopharynx SARS-CoV-2 RdRp Gene Assay - Final Complete 05/16/20 06:20 Blood Blood Culture - Preliminary Gram Negative Melvin Resulted 05/16/20 06:05 Blood Blood Culture - Preliminary NO GROWTH AFTER 24 HOURS Resulted Current Medications Medications (Trade) Dose Ordered Sig/Carson Route PRN Reason Start Time Stop Time Status Last Admin Dose Admin Acetaminophen (Tylenol) 650 mg Q4H PRN ORAL Mild Pain (Pain Scale 1-3) 05/16/20 11:30 06/15/20 11:29 05/17/20 12:56 Acetaminophen (Tylenol) 650 mg Q4H PRN ORAL Temp >100.5 05/16/20 11:30 06/15/20 11:29 05/18/20 04:19 Amitriptyline HCl (Elavil) 50 mg BEDTIME ORAL 05/17/20 21:00 06/16/20 20:59 05/17/20 20:50 Benazepril HCl (Lotensin) 5 mg DAILY ORAL 05/18/20 09:00 06/17/20 08:59 05/18/20 08:11 Bupropion HCl (Wellbutrin XL) 150 mg DAILY ORAL 05/18/20 09:00 06/17/20 08:59 05/18/20 08:10 Ceftriaxone Sodium 2 gm/ Dextrose 110 ml @ 220 mls/hr Q24H IVPB 05/17/20 13:00 05/24/20 12:59 05/17/20 12:55 Dextrose/Sodium Chloride 1,000 ml @ 50 mls/hr Q20H IV 05/16/20 15:00 06/15/20 14:59 05/17/20 11:18 Enoxaparin Sodium (Lovenox) 40 mg DAILY SUBQ 05/17/20 09:00 08/15/20 08:59 05/18/20 08:12 Famotidine (Pepcid) 20 mg BID ORAL 05/16/20 18:00 08/14/20 17:59 05/18/20 08:10 Gabapentin (Neurontin) 800 mg Q8HR ORAL 05/17/20 14:00 06/16/20 13:59 05/18/20 05:18 Hydralazine HCl (Apresoline) 25 mg Q4H PRN ORAL bp over 160 syst 05/16/20 15:00 08/14/20 14:59 Multivitamins (Multivitamins) 1 tab DAILY ORAL 05/18/20 09:00 06/17/20 08:59 05/18/20 08:10 Tamsulosin HCl (Flomax) 0.4 mg BEDTIME ORAL 05/17/20 21:00 06/16/20 20:59 05/17/20 20:50 Assessment/Plan Assessment/Plan 1. COVID-19 pneumonia -Droplet isolation -Currently saturating well on room air with normal work of breathing; no indication for specific therapy for COVID-19 at this time -Continue monitor for hypoxemia, and provide supplemental oxygen as needed -Supportive care -Follow-up imaging if indicated 2. Respiratory distress on arrival; now improved on room air - pt is using low flow oxygen for comfort; saturates at 95% on room air 2. Hypertension - per primary MD 3. Elevated inflammatory markers -We will initiate Lovenox for DVT prophylaxis 4. Hyponatremia -Per primary MD 5. Pyelonephritis -ID following 6. Sepsis - ID following 7. Bacteremia 8. E Coli UTI - ID following The care for this patient was discussed with my supervising physician. Time spent for this case was approximately 31 minutes. Billy Ly May 18, 2020 12:49
[2020-05-18] MEDS: cefTRIAXone 2 GM in D5W 110 ML IVPB SCH (12:57)
--- NOTE | 2020-05-18 13:53 | Infectious Diseases Prog Note ---
Assessment/Plan Assessment/Plan IMPRESSION: 1. Gram-negative sepsis. 2. Pyelonephritis with E.coli 3. COVID-positive, likely mild disease or recent infection. 4. HIV. 5. BPH. 6. Depression. 7. Acidosis. 8. Hypertension. RECOMMENDATION: Continue ceftriaxone. Continue HIV medications: Odefsey & Prezcobix Subjective ROS Limited/Unobtainable: Yes Constitutional: Reports: fever, other - low grade fever in am, feels better Respiratory: Reports: no symptoms Gastrointestinal/Abdominal: Reports: no symptoms Genitourinary: Reports: other - left flank pain decreased Allergies: Coded Allergies: No Known Allergies (Unverified , 05/16/20) Objective Last 24 Hour Vital Signs Date Time Temp Pulse Resp B/P (MAP) Pulse Ox O2 Delivery O2 Flow Rate FiO2 05/18/20 12:00 97.9 88 18 136/67 (90) 94 05/18/20 09:00 Nasal Cannula 2.0 05/18/20 08:11 127/65 05/18/20 08:00 98.1 75 18 127/65 (85) 94 05/18/20 04:49 98.0 05/18/20 04:00 100.4 95 18 115/68 (84) 94 05/17/20 23:34 100.0 93 18 147/67 (93) 92 05/17/20 21:00 Nasal Cannula 2.0 05/17/20 20:00 99.4 93 18 147/91 (109) 92 05/17/20 16:00 97.8 79 18 130/66 (87) 98 Height (Feet): 6 Height (Inches): 1.00 Weight (Pounds): 200 HEENT: mucous membranes moist Respiratory/Chest: lungs clear Cardiovascular: normal rate Abdomen: soft, non tender Extremities: no edema Neurologic/Psychiatric: alert, oriented x 3, responsive Microbiology Date/Time Source Procedure Growth Status 05/16/20 09:06 Urine,Clean Catch Urine Culture - Final Escherichia Coli Complete 05/16/20 07:09 Nasopharynx SARS-CoV-2 RdRp Gene Assay - Final Complete 05/16/20 06:20 Blood Blood Culture - Preliminary Gram Negative Melvin Resulted 05/16/20 06:05 Blood Blood Culture - Preliminary NO GROWTH AFTER 24 HOURS Resulted Current Medications Medications (Trade) Dose Ordered Sig/Carson Route PRN Reason Start Time Stop Time Status Last Admin Dose Admin Acetaminophen (Tylenol) 650 mg Q4H PRN ORAL Mild Pain (Pain Scale 1-3) 05/16/20 11:30 06/15/20 11:29 05/17/20 12:56 Acetaminophen (Tylenol) 650 mg Q4H PRN ORAL Temp >100.5 05/16/20 11:30 06/15/20 11:29 05/18/20 04:19 Amitriptyline HCl (Elavil) 50 mg BEDTIME ORAL 05/17/20 21:00 06/16/20 20:59 05/17/20 20:50 Benazepril HCl (Lotensin) 5 mg DAILY ORAL 05/18/20 09:00 06/17/20 08:59 05/18/20 08:11 Bupropion HCl (Wellbutrin XL) 150 mg DAILY ORAL 05/18/20 09:00 06/17/20 08:59 05/18/20 08:10 Ceftriaxone Sodium 2 gm/ Dextrose 110 ml @ 220 mls/hr Q24H IVPB 05/17/20 13:00 05/24/20 12:59 05/18/20 12:57 Dextrose/Sodium Chloride 1,000 ml @ 50 mls/hr Q20H IV 05/16/20 15:00 06/15/20 14:59 05/17/20 11:18 Enoxaparin Sodium (Lovenox) 40 mg DAILY SUBQ 05/17/20 09:00 08/15/20 08:59 05/18/20 08:12 Famotidine (Pepcid) 20 mg BID ORAL 05/16/20 18:00 08/14/20 17:59 05/18/20 08:10 Gabapentin (Neurontin) 800 mg Q8HR ORAL 05/17/20 14:00 06/16/20 13:59 05/18/20 12:59 Hydralazine HCl (Apresoline) 25 mg Q4H PRN ORAL bp over 160 syst 05/16/20 15:00 08/14/20 14:59 Multivitamins (Multivitamins) 1 tab DAILY ORAL 05/18/20 09:00 06/17/20 08:59 05/18/20 08:10 Tamsulosin HCl (Flomax) 0.4 mg BEDTIME ORAL 05/17/20 21:00 2/17/21 20:59 05/17/20 20:50 Tino Armas MD May 18, 2020 13:53
[2020-05-18 16:00] VITALS: BP 127/66
[2020-05-18] MEDS ORDERED: BENAZEPRIL HCL5 MG ORAL (18:34)
[2020-05-18] MEDS ORDERED: AMITRIPTYLINE H50 MG ORAL (18:34)
--- NOTE | 2020-05-18 19:10 | NUR ---
NURSE NOTES: received pt and report from NIECY Peña. pt alert and oriented x 4 with no acute s/s of distress and no co pain at the moment. IV site clean dry and intact and running fluids as ordered. Plan of care discussed. Pt no co sob or difficulty breathing.
--- NOTE | 2020-05-18 19:12 | NUR ---
NURSE HAND-OFF: Important Events on Shift:[none, low grade fever for 2 hours 99 F ] Patient Status: [stable] Diet: [reg] Pending Orders: [] Pending Results/Labs:[] Pending MD notification:[] Latest Vital Signs: Temperature 98.1 , Pulse 80 , B/P 127 /66 , Respiratory Rate 20 , O2 SAT 94 , Room Air, O2 Flow Rate 2.0 . Vital Sign Comment: [] Latest Wooten Fall Score: 45 Fall Risk: High Risk Safety Measures: Call light Within Reach, Bed Alarm Zone 2, Side Rails Side Rails x2, Bed position Low and Locked. Fall Precautions: Yellow Socks Report given to [Lester RN].
[2020-05-18 20:00] VITALS: BP 134/67
--- NOTE | 2020-05-18 20:10 | NUR ---
NURSE NOTES: pt vital signs stable at this time. no co pain. no co sob and difficulty breathing. no acute distress observed.
--- NOTE | 2020-05-18 20:57 | General Progress Note ---
Subjective ROS Limited/Unobtainable: Yes Allergies: Coded Allergies: No Known Allergies (Unverified , 05/16/20) Objective Last 24 Hour Vital Signs Date Time Temp Pulse Resp B/P (MAP) Pulse Ox O2 Delivery O2 Flow Rate FiO2 05/18/20 20:32 Nasal Cannula 2.0 05/18/20 20:00 97.9 87 18 134/67 (89) 96 05/18/20 18:00 98.1 05/18/20 16:00 99.5 80 20 127/66 (86) 94 05/18/20 12:00 97.9 88 18 136/67 (90) 94 05/18/20 09:00 Nasal Cannula 2.0 05/18/20 08:11 127/65 05/18/20 08:00 98.1 75 18 127/65 (85) 94 05/18/20 04:49 98.0 05/18/20 04:00 100.4 95 18 115/68 (84) 94 05/17/20 23:34 100.0 93 18 147/67 (93) 92 05/17/20 21:00 Nasal Cannula 2.0 Intake and Output 05/17/20 05/18/20 19:00 07:00 Intake Total 360 ml 1100 ml Balance 360 ml 1100 ml Intake Oral 360 ml 500 ml IV Total 600 ml # Voids 3 3 Height (Feet): 6 Height (Inches): 1.00 Weight (Pounds): 200 Assessment/Plan Problem List: (1) Pyelonephritis ICD Codes: N12 - Tubulo-interstitial nephritis, not specified as acute or chronic SNOMED: 91572362 (2) COVID-19 virus detected ICD Codes: U07.1 - COVID-19 SNOMED: 6221442072737484 (3) Dehydration ICD Codes: E86.0 - Dehydration SNOMED: 34627858 (4) Electrolyte imbalance ICD Codes: E87.8 - Other disorders of electrolyte and fluid balance, not elsewhere classified SNOMED: 857719695 (5) Sepsis ICD Codes: A41.9 - Sepsis, unspecified organism SNOMED: 57517392 Qualifiers: Qualified Codes: A41.9 - Sepsis, unspecified organism Status: progressing Assessment/Plan: clinically improving afebrile reviewed chart and labs covid + sepsis lyte abnormlaity pyleonephritis Julio César Santana MD May 18, 2020 20:56
[2020-05-18] MEDS: Tamsulosin 0.4mg cap ORAL SCH (21:08)
[2020-05-19] VITALS: BP 127/64
--- NOTE | 2020-05-19 00:15 | NUR ---
NURSE NOTES: pt vital signs remain stable at this time. no co pain. pt in no acute distress. no co sob and difficulty breathing at this moment.
[2020-05-19] MEDS: D5NS 1,000 ML IV SCH ×2 (03:00→21:55)
[2020-05-19 04:00] VITALS: BP 128/65
--- NOTE | 2020-05-19 04:10 | NUR ---
NURSE NOTES: pt vital signs stable at this time. pt in no acute distress. co pain in flank area, will give pain med.
[2020-05-19 06:09] LABS: ALANINE AMINOTRANSFERASE 32 U/L (12-78); ALBUMIN 2.7 G/DL (3.4-5.0); ALBUMIN/GLOBULIN RATIO 0.6 (1.0-2.7); ALKALINE PHOSPHATASE 77 U/L (46-116); ANION GAP 9 mmol/L (5-15); ASPARTATE AMINO TRANSFERASE 31 U/L (15-37); BILIRUBIN,TOTAL 0.4 MG/DL (0.2-1.0); BLOOD UREA NITROGEN 16 mg/dL (7-18); CALCIUM 8.5 MG/DL (8.5-10.1); CARBON DIOXIDE 24 MMOL/L (21-32); CHLORIDE 104 MMOL/L (98-107); CREATININE 1.1 MG/DL (0.55-1.30); PHOSPHORUS 2.6 MG/DL (2.5-4.9); POTASSIUM 3.5 MMOL/L (3.5-5.1); SODIUM 137 MMOL/L (136-145)
--- NOTE | 2020-05-19 07:10 | NUR ---
NURSE HAND-OFF: Important Events on Shift:NA Patient Status: stable Diet: regular Pending Orders: NA Pending Results/Labs:NA Pending MD notification:NA Latest Vital Signs: Temperature 98.6 , Pulse 89 , B/P 128 /65 , Respiratory Rate 18 , O2 SAT 95 , Room Air, O2 Flow Rate 2.0 . Vital Sign Comment: stable through the shift Latest Wooten Fall Score: 45 Fall Risk: High Risk Safety Measures: Call light Within Reach, Bed Alarm Zone 2, Side Rails Side Rails x2, Bed position Low and Locked. Fall Precautions: Yellow Socks Report given to NIECY Mitchell.
--- NOTE | 2020-05-19 07:45 | NUR ---
NURSE NOTES: RN received report from Lester. RN received the patient ambulating in the room showing no s/s of respiratory distress on room air or pain. IV is patent, flushed, dry, intact and asymptomatic. Bed in lowest position and locked. Call light within reach. Side rails up X2. Will continue to monitor. Addendum: 05/19/20 at 1142 by Jeancarlos Mitchell RN [id number]
[2020-05-19 08:00] VITALS: BP 124/64
[2020-05-19] MEDS: BuPROPion XL 150mg tab ORAL SCH (09:57)
[2020-05-19] MEDS: Benazepril 10mg tab ORAL SCH (09:57)
[2020-05-19] MEDS: Enoxaparin 40mg Inj SUBQ SCH (09:58)
--- NOTE | 2020-05-19 11:42 | NUR ---
CASE MANAGEMENT:REVIEW SI;COVID PNEUMONIA. PYELONEPHRITIS. SEPSIS. 99.1 89 18 134/67 95% 2L NC ALB- 2.7 IS;ROCEPHIN IV Q24 LOVENOX SQ QD PEPCID PO BID IVF D5NS @ 50 ML/HR TYLENOL PO Q4 PRN MED SURG STATUS DCP;FROM HOME
[2020-05-19 12:00] VITALS: BP 126/64
[2020-05-19] MEDS: cefTRIAXone 2 GM in D5W 110 ML IVPB SCH (13:27)
--- NOTE | 2020-05-19 13:38 | Pulmonology Progress Note ---
Subjective ROS Limited/Unobtainable: Yes Interval Events: fever overnight Constitutional: Reports: fever, other - resolved HEENT: Repors: no symptoms Respiratory: Reports: no symptoms Cardiovascular: Reports: no symptoms Gastrointestinal/Abdominal: Reports: no symptoms Allergies: Coded Allergies: No Known Allergies (Unverified , 05/16/20) Objective Last 24 Hour Vital Signs Date Time Temp Pulse Resp B/P (MAP) Pulse Ox O2 Delivery O2 Flow Rate FiO2 05/19/20 12:00 97.8 82 18 126/64 (84) 96 05/19/20 09:57 124/64 05/19/20 09:00 Nasal Cannula 2.0 05/19/20 08:00 98.1 70 18 124/64 (84) 96 05/19/20 04:00 98.6 89 18 128/65 (86) 95 05/19/20 00:00 99.1 82 18 127/64 (85) 96 05/18/20 20:32 Nasal Cannula 2.0 05/18/20 20:00 97.9 87 18 134/67 (89) 96 05/18/20 18:00 98.1 05/18/20 16:00 99.5 80 20 127/66 (86) 94 Intake and Output 05/18/20 05/19/20 19:00 07:00 Intake Total 250 ml 550 ml Balance 250 ml 550 ml IV Total 250 ml 550 ml General Appearance: no acute distress HEENT: atraumatic Respiratory: lungs clear Cardiovascular: normal rate, regular rhythm Abdomen: soft, non tender Laboratory Tests 05/19/20 04:00: Sodium Level 137, Potassium Level 3.5, Chloride Level 104, Carbon Dioxide Level 24, Anion Gap 9, Blood Urea Nitrogen 16, Creatinine 1.1, Estimat Glomerular Filtration Rate > 60, Glucose Level 108H, Uric Acid 4.1, Calcium Level 8.5, Phosphorus Level 2.6, Magnesium Level 2.2, Total Bilirubin 0.4, Aspartate Amino Transf (AST/SGOT) 31, Alanine Aminotransferase (ALT/SGPT) 32, Alkaline Phosphatase 77, Total Protein 7.4, Albumin 2.7L, Globulin 4.7, Albumin/Globulin Ratio 0.6L Current Medications Medications (Trade) Dose Ordered Sig/Carson Route PRN Reason Start Time Stop Time Status Last Admin Dose Admin Acetaminophen (Tylenol) 650 mg Q4H PRN ORAL Temp >100.5 05/16/20 11:30 06/15/20 11:29 05/18/20 04:19 Acetaminophen (Tylenol) 650 mg Q4H PRN ORAL Mild Pain (Pain Scale 1-3) 05/16/20 11:30 06/15/20 11:29 05/19/20 04:46 Amitriptyline HCl (Elavil) 50 mg BEDTIME ORAL 05/17/20 21:00 06/16/20 20:59 05/18/20 21:08 Benazepril HCl (Lotensin) 5 mg DAILY ORAL 05/18/20 09:00 06/17/20 08:59 05/19/20 09:57 Bupropion HCl (Wellbutrin XL) 150 mg DAILY ORAL 05/18/20 09:00 06/17/20 08:59 05/19/20 09:57 Ceftriaxone Sodium 2 gm/ Dextrose 110 ml @ 220 mls/hr Q24H IVPB 05/17/20 13:00 05/24/20 12:59 05/19/20 13:27 Dextrose/Sodium Chloride 1,000 ml @ 50 mls/hr Q20H IV 05/16/20 15:00 06/15/20 14:59 05/19/20 03:00 Enoxaparin Sodium (Lovenox) 40 mg DAILY SUBQ 05/17/20 09:00 08/15/20 08:59 05/19/20 09:58 Famotidine (Pepcid) 20 mg BID ORAL 05/16/20 18:00 08/14/20 17:59 05/19/20 09:57 Gabapentin (Neurontin) 800 mg Q8HR ORAL 05/17/20 14:00 06/16/20 13:59 05/19/20 13:27 Hydralazine HCl (Apresoline) 25 mg Q4H PRN ORAL bp over 160 syst 05/16/20 15:00 08/14/20 14:59 Multivitamins (Multivitamins) 1 tab DAILY ORAL 05/18/20 09:00 06/17/20 08:59 05/19/20 09:56 Tamsulosin HCl (Flomax) 0.4 mg BEDTIME ORAL 05/17/20 21:00 06/16/20 20:59 05/18/20 21:08 Assessment/Plan Assessment/Plan 1. COVID-19 pneumonia -Droplet isolation -Currently saturating well on room air with normal work of breathing; no indication for specific therapy for COVID-19 at this time -Continue monitor for hypoxemia, and provide supplemental oxygen as needed -Supportive care -Follow-up imaging if indicated 2. Respiratory distress on arrival; now improved on room air - pt is using low flow oxygen for comfort; saturates at 95% on room air 2. Hypertension - per primary MD 3. Elevated inflammatory markers -We will initiate Lovenox for DVT prophylaxis 4. Hyponatremia -Per primary MD 5. Pyelonephritis -ID following 6. Sepsis - ID following 7. Bacteremia 8. E Coli UTI - ID following The care for this patient was discussed with my supervising physician. Time spent for this case was approximately 31 minutes. Billy Ly May 19, 2020 13:38
--- NOTE | 2020-05-19 13:42 | Nephrology Progress Note ---
Assessment/Plan Problem List: (1) Dehydration (2) Electrolyte imbalance (3) COVID-19 virus detected (4) Pyelonephritis (5) Sepsis Assessment Hyponatremia Low magnesium Sepsis COVID-19 virus detected Pyelonephritis Plan May 19: Labs reviewed. Renal parameters stable. Continue per consultants. May 18: No labs drawn today. Continue to monitor electrolytes and renal parameters. Medication list reviewed. May 17: Labs reviewed. Electrolytes stable. Continue per consultants. Previously: Magnesium supplement Monitor electrolyte Saline bolus for low sodium Per orders Subjective ROS Limited/Unobtainable: No Constitutional: Reports: malaise Objective Objective Last 24 Hour Vital Signs Date Time Temp Pulse Resp B/P (MAP) Pulse Ox O2 Delivery O2 Flow Rate FiO2 05/19/20 12:00 97.8 82 18 126/64 (84) 96 05/19/20 09:57 124/64 05/19/20 09:00 Nasal Cannula 2.0 05/19/20 08:00 98.1 70 18 124/64 (84) 96 05/19/20 04:00 98.6 89 18 128/65 (86) 95 05/19/20 00:00 99.1 82 18 127/64 (85) 96 05/18/20 20:32 Nasal Cannula 2.0 05/18/20 20:00 97.9 87 18 134/67 (89) 96 05/18/20 18:00 98.1 05/18/20 16:00 99.5 80 20 127/66 (86) 94 Intake and Output 05/18/20 05/19/20 19:00 07:00 Intake Total 250 ml 550 ml Balance 250 ml 550 ml IV Total 250 ml 550 ml Current Medications Medications (Trade) Dose Ordered Sig/Carson Route PRN Reason Start Time Stop Time Status Last Admin Dose Admin Acetaminophen (Tylenol) 650 mg Q4H PRN ORAL Temp >100.5 05/16/20 11:30 06/15/20 11:29 05/18/20 04:19 Acetaminophen (Tylenol) 650 mg Q4H PRN ORAL Mild Pain (Pain Scale 1-3) 05/16/20 11:30 06/15/20 11:29 05/19/20 04:46 Amitriptyline HCl (Elavil) 50 mg BEDTIME ORAL 05/17/20 21:00 06/16/20 20:59 05/18/20 21:08 Benazepril HCl (Lotensin) 5 mg DAILY ORAL 05/18/20 09:00 06/17/20 08:59 05/19/20 09:57 Bupropion HCl (Wellbutrin XL) 150 mg DAILY ORAL 05/18/20 09:00 06/17/20 08:59 05/19/20 09:57 Ceftriaxone Sodium 2 gm/ Dextrose 110 ml @ 220 mls/hr Q24H IVPB 05/17/20 13:00 05/24/20 12:59 05/19/20 13:27 Dextrose/Sodium Chloride 1,000 ml @ 50 mls/hr Q20H IV 05/16/20 15:00 06/15/20 14:59 05/19/20 03:00 Enoxaparin Sodium (Lovenox) 40 mg DAILY SUBQ 05/17/20 09:00 08/15/20 08:59 05/19/20 09:58 Famotidine (Pepcid) 20 mg BID ORAL 05/16/20 18:00 08/14/20 17:59 05/19/20 09:57 Gabapentin (Neurontin) 800 mg Q8HR ORAL 05/17/20 14:00 06/16/20 13:59 05/19/20 13:27 Hydralazine HCl (Apresoline) 25 mg Q4H PRN ORAL bp over 160 syst 05/16/20 15:00 08/14/20 14:59 Multivitamins (Multivitamins) 1 tab DAILY ORAL 05/18/20 09:00 06/17/20 08:59 05/19/20 09:56 Tamsulosin HCl (Flomax) 0.4 mg BEDTIME ORAL 05/17/20 21:00 06/16/20 20:59 05/18/20 21:08 Laboratory Tests 05/19/20 04:00: Sodium Level 137, Potassium Level 3.5, Chloride Level 104, Carbon Dioxide Level 24, Anion Gap 9, Blood Urea Nitrogen 16, Creatinine 1.1, Estimat Glomerular Filtration Rate > 60, Glucose Level 108H, Uric Acid 4.1, Calcium Level 8.5, Phosphorus Level 2.6, Magnesium Level 2.2, Total Bilirubin 0.4, Aspartate Amino Transf (AST/SGOT) 31, Alanine Aminotransferase (ALT/SGPT) 32, Alkaline Phosphatase 77, Total Protein 7.4, Albumin 2.7L, Globulin 4.7, Albumin/Globulin Ratio 0.6L Height (Feet): 6 Height (Inches): 1.00 Weight (Pounds): 200 General Appearance: no apparent distress Cardiovascular: normal rate Respiratory/Chest: decreased breath sounds Abdomen: distended Objective No change Vladislav Torres MD May 19, 2020 13:42
--- NOTE | 2020-05-19 15:36 | Infectious Diseases Prog Note ---
Assessment/Plan Assessment/Plan IMPRESSION: 1. Gram-negative sepsis. 2. Pyelonephritis with E.coli 3. COVID-positive, likely mild disease or recent infection. 4. HIV. 5. BPH. 6. Depression. 7. Acidosis. 8. Hypertension. RECOMMENDATION: Continue ceftriaxone. Continue HIV medications: Odefsey & Prezcobix Will f/u blood culture Subjective ROS Limited/Unobtainable: Yes Constitutional: Denies: fever Allergies: Coded Allergies: No Known Allergies (Unverified , 05/16/20) Objective Last 24 Hour Vital Signs Date Time Temp Pulse Resp B/P (MAP) Pulse Ox O2 Delivery O2 Flow Rate FiO2 05/19/20 12:00 97.8 82 18 126/64 (84) 96 05/19/20 09:57 124/64 05/19/20 09:00 Nasal Cannula 2.0 05/19/20 08:00 98.1 70 18 124/64 (84) 96 05/19/20 04:00 98.6 89 18 128/65 (86) 95 05/19/20 00:00 99.1 82 18 127/64 (85) 96 05/18/20 20:32 Nasal Cannula 2.0 05/18/20 20:00 97.9 87 18 134/67 (89) 96 05/18/20 18:00 98.1 05/18/20 16:00 99.5 80 20 127/66 (86) 94 Height (Feet): 6 Height (Inches): 1.00 Weight (Pounds): 200 General Appearance: no acute distress HEENT: mucous membranes moist Respiratory/Chest: no respiratory distress, other - on room air O2 Cardiovascular: normal rate Abdomen: soft, non tender Extremities: no edema Laboratory Tests Test 05/19/20 04:00 Sodium Level 137 MMOL/L (136-145) Potassium Level 3.5 MMOL/L (3.5-5.1) Chloride Level 104 MMOL/L (98-107) Carbon Dioxide Level 24 MMOL/L (21-32) Anion Gap 9 mmol/L (5-15) Blood Urea Nitrogen 16 mg/dL (7-18) Creatinine 1.1 MG/DL (0.55-1.30) Estimat Glomerular Filtration Rate > 60 mL/min (>60) Glucose Level 108 MG/DL (74-106) H Uric Acid 4.1 MG/DL (2.6-7.2) Calcium Level 8.5 MG/DL (8.5-10.1) Phosphorus Level 2.6 MG/DL (2.5-4.9) Magnesium Level 2.2 MG/DL (1.8-2.4) Total Bilirubin 0.4 MG/DL (0.2-1.0) Aspartate Amino Transf (AST/SGOT) 31 U/L (15-37) Alanine Aminotransferase (ALT/SGPT) 32 U/L (12-78) Alkaline Phosphatase 77 U/L (46-116) Total Protein 7.4 G/DL (6.4-8.2) Albumin 2.7 G/DL (3.4-5.0) L Globulin 4.7 g/dL Albumin/Globulin Ratio 0.6 (1.0-2.7) L Current Medications Medications (Trade) Dose Ordered Sig/Carson Route PRN Reason Start Time Stop Time Status Last Admin Dose Admin Acetaminophen (Tylenol) 650 mg Q4H PRN ORAL Temp >100.5 05/16/20 11:30 06/15/20 11:29 05/18/20 04:19 Acetaminophen (Tylenol) 650 mg Q4H PRN ORAL Mild Pain (Pain Scale 1-3) 05/16/20 11:30 06/15/20 11:29 05/19/20 04:46 Amitriptyline HCl (Elavil) 50 mg BEDTIME ORAL 05/17/20 21:00 06/16/20 20:59 05/18/20 21:08 Benazepril HCl (Lotensin) 5 mg DAILY ORAL 05/18/20 09:00 06/17/20 08:59 05/19/20 09:57 Bupropion HCl (Wellbutrin XL) 150 mg DAILY ORAL 05/18/20 09:00 06/17/20 08:59 05/19/20 09:57 Ceftriaxone Sodium 2 gm/ Dextrose 110 ml @ 220 mls/hr Q24H IVPB 05/17/20 13:00 05/24/20 12:59 05/19/20 13:27 Dextrose/Sodium Chloride 1,000 ml @ 50 mls/hr Q20H IV 05/16/20 15:00 06/15/20 14:59 05/19/20 03:00 Enoxaparin Sodium (Lovenox) 40 mg DAILY SUBQ 05/17/20 09:00 08/15/20 08:59 05/19/20 09:58 Famotidine (Pepcid) 20 mg BID ORAL 05/16/20 18:00 08/14/20 17:59 05/19/20 09:57 Gabapentin (Neurontin) 800 mg Q8HR ORAL 05/17/20 14:00 06/16/20 13:59 05/19/20 13:27 Hydralazine HCl (Apresoline) 25 mg Q4H PRN ORAL bp over 160 syst 05/16/20 15:00 08/14/20 14:59 Multivitamins (Multivitamins) 1 tab DAILY ORAL 05/18/20 09:00 06/17/20 08:59 05/19/20 09:56 Tamsulosin HCl (Flomax) 0.4 mg BEDTIME ORAL 05/17/20 21:00 06/16/20 20:59 05/18/20 21:08 Tino Armas MD May 19, 2020 15:36
[2020-05-19 16:00] VITALS: BP 137/65
--- NOTE | 2020-05-19 19:34 | NUR ---
NURSE NOTES: IV infiltration with Ceftriazone on the right hand. Right hand is swollen. RN removed the IV, placed ice packs and elevated the hand. Will endorse it to next shift nurse.
--- NOTE | 2020-05-19 19:45 | NUR ---
NURSE HAND-OFF: Important Events on Shift:infiltration on right hand, in need of a new IV Patient Status: stable Diet: regular Pending Orders: n/a Pending Results/Labs:n/a Pending MD notification:n/a Latest Vital Signs: Temperature 99.1 , Pulse 73 , B/P 137 /65 , Respiratory Rate 18 , O2 SAT 96 , Room Air, O2 Flow Rate 2.0 . Vital Sign Comment: stable Latest Wooten Fall Score: 45 Fall Risk: High Risk Safety Measures: Call light Within Reach, Bed Alarm Zone 2, Side Rails Side Rails x2, Bed position Low and Locked. Fall Precautions: Yellow Socks Report given to Lucero.
[2020-05-19 20:00] VITALS: BP 148/79
--- NOTE | 2020-05-19 20:23 | General Progress Note ---
Subjective ROS Limited/Unobtainable: Yes Allergies: Coded Allergies: No Known Allergies (Unverified , 05/16/20) Objective Last 24 Hour Vital Signs Date Time Temp Pulse Resp B/P (MAP) Pulse Ox O2 Delivery O2 Flow Rate FiO2 05/19/20 16:00 99.1 73 18 137/65 (89) 96 05/19/20 12:00 97.8 82 18 126/64 (84) 96 05/19/20 09:57 124/64 05/19/20 09:00 Nasal Cannula 2.0 05/19/20 08:00 98.1 70 18 124/64 (84) 96 05/19/20 04:00 98.6 89 18 128/65 (86) 95 05/19/20 00:00 99.1 82 18 127/64 (85) 96 05/18/20 20:32 Nasal Cannula 2.0 Intake and Output 05/18/20 05/19/20 19:00 07:00 Intake Total 250 ml 550 ml Balance 250 ml 550 ml IV Total 250 ml 550 ml Laboratory Tests 05/19/20 04:00: Sodium Level 137, Potassium Level 3.5, Chloride Level 104, Carbon Dioxide Level 24, Anion Gap 9, Blood Urea Nitrogen 16, Creatinine 1.1, Estimat Glomerular Filtration Rate > 60, Glucose Level 108H, Uric Acid 4.1, Calcium Level 8.5, Phosphorus Level 2.6, Magnesium Level 2.2, Total Bilirubin 0.4, Aspartate Amino Transf (AST/SGOT) 31, Alanine Aminotransferase (ALT/SGPT) 32, Alkaline Phosphatase 77, Total Protein 7.4, Albumin 2.7L, Globulin 4.7, Albumin/Globulin Ratio 0.6L Height (Feet): 6 Height (Inches): 1.00 Weight (Pounds): 200 Assessment/Plan Problem List: (1) Pyelonephritis ICD Codes: N12 - Tubulo-interstitial nephritis, not specified as acute or chronic SNOMED: 12590313 (2) COVID-19 virus detected ICD Codes: U07.1 - COVID-19 SNOMED: 7364777100986000 (3) Dehydration ICD Codes: E86.0 - Dehydration SNOMED: 11774605 (4) Electrolyte imbalance ICD Codes: E87.8 - Other disorders of electrolyte and fluid balance, not elsewhere classified SNOMED: 981716028 (5) Sepsis ICD Codes: A41.9 - Sepsis, unspecified organism SNOMED: 48807498 Qualifiers: Qualified Codes: A41.9 - Sepsis, unspecified organism Status: progressing Assessment/Plan: abx per id pain is improving covid + sepsis lyte abnormlaity is improving pyleonephritis Julio César Santana MD May 19, 2020 20:23
[2020-05-19] MEDS: Tamsulosin 0.4mg cap ORAL SCH (21:52)
[2020-05-20 04:00] VITALS: BP 139/66
[2020-05-20 08:00] VITALS: BP 145/75
[2020-05-20] MEDS: BuPROPion XL 150mg tab ORAL SCH (09:52)
--- NOTE | 2020-05-20 09:58 | Pulmonology Progress Note ---
Subjective ROS Limited/Unobtainable: Yes Interval Events: fever overnight Constitutional: Denies: fever HEENT: Repors: no symptoms Respiratory: Reports: no symptoms Cardiovascular: Reports: no symptoms Gastrointestinal/Abdominal: Reports: no symptoms Allergies: Coded Allergies: No Known Allergies (Unverified , 05/16/20) Objective Last 24 Hour Vital Signs Date Time Temp Pulse Resp B/P (MAP) Pulse Ox O2 Delivery O2 Flow Rate FiO2 05/20/20 04:00 97.3 17 139/66 (90) 95 05/19/20 21:00 Nasal Cannula 2.0 05/19/20 20:00 98.1 78 17 148/79 (102) 96 05/19/20 16:00 99.1 73 18 137/65 (89) 96 05/19/20 12:00 97.8 82 18 126/64 (84) 96 05/19/20 09:57 124/64 Intake and Output 05/19/20 05/20/20 19:00 07:00 Intake Total 50 ml 400 ml Balance 50 ml 400 ml IV Total 50 ml 400 ml General Appearance: no acute distress HEENT: atraumatic Respiratory: lungs clear Cardiovascular: normal rate, regular rhythm Abdomen: soft, non tender Current Medications Medications (Trade) Dose Ordered Sig/Carson Route PRN Reason Start Time Stop Time Status Last Admin Dose Admin Acetaminophen (Tylenol) 650 mg Q4H PRN ORAL Temp >100.5 05/16/20 11:30 06/15/20 11:29 05/18/20 04:19 Acetaminophen (Tylenol) 650 mg Q4H PRN ORAL Mild Pain (Pain Scale 1-3) 05/16/20 11:30 06/15/20 11:29 05/19/20 04:46 Amitriptyline HCl (Elavil) 50 mg BEDTIME ORAL 05/17/20 21:00 06/16/20 20:59 05/19/20 21:51 Benazepril HCl (Lotensin) 5 mg DAILY ORAL 05/18/20 09:00 06/17/20 08:59 05/19/20 09:57 Bupropion HCl (Wellbutrin XL) 150 mg DAILY ORAL 05/18/20 09:00 06/17/20 08:59 05/20/20 09:52 Ceftriaxone Sodium 2 gm/ Dextrose 110 ml @ 220 mls/hr Q24H IVPB 1/18/21 13:00 05/24/20 12:59 05/19/20 13:27 Dextrose/Sodium Chloride 1,000 ml @ 50 mls/hr Q20H IV 05/16/20 15:00 06/15/20 14:59 05/19/20 21:55 Enoxaparin Sodium (Lovenox) 40 mg DAILY SUBQ 05/17/20 09:00 08/15/20 08:59 05/19/20 09:58 Famotidine (Pepcid) 20 mg BID ORAL 05/16/20 18:00 08/14/20 17:59 05/20/20 09:51 Gabapentin (Neurontin) 800 mg Q8HR ORAL 05/17/20 14:00 06/16/20 13:59 05/20/20 06:12 Hydralazine HCl (Apresoline) 25 mg Q4H PRN ORAL bp over 160 syst 05/16/20 15:00 08/14/20 14:59 Multivitamins (Multivitamins) 1 tab DAILY ORAL 05/18/20 09:00 06/17/20 08:59 05/20/20 09:52 Tamsulosin HCl (Flomax) 0.4 mg BEDTIME ORAL 05/17/20 21:00 06/16/20 20:59 05/19/20 21:52 Assessment/Plan Assessment/Plan 1. COVID-19 pneumonia -Droplet isolation -Currently saturating well on room air with normal work of breathing; no indication for specific therapy for COVID-19 at this time -Continue monitor for hypoxemia, and provide supplemental oxygen as needed -Supportive care -Follow-up imaging if indicated 2. Respiratory distress on arrival; now improved on room air - pt is using low flow oxygen for comfort; saturates at 95% on room air 2. Hypertension - per primary MD 3. Elevated inflammatory markers -We will initiate Lovenox for DVT prophylaxis 4. Hyponatremia -Per primary MD 5. Pyelonephritis -ID following 6. Sepsis - ID following 7. Bacteremia 8. E Coli UTI - ID following 9. HIV - Continue home HIV meds: Odefsey & Prezcobix The care for this patient was discussed with my supervising physician. Time spent for this case was approximately 31 minutes. Billy Ly May 20, 2020 09:58
[2020-05-20] MEDS: Benazepril 10mg tab ORAL SCH (10:08)
--- NOTE | 2020-05-20 11:52 | Infectious Diseases Prog Note ---
Assessment/Plan Assessment/Plan IMPRESSION: 1. E. coli sepsis. 2. Pyelonephritis with E.coli 3. COVID-positive, likely mild disease or recent infection. 4. HIV. 5. BPH. 6. Depression. 7. Acidosis. 8. Hypertension. RECOMMENDATION: Continue ceftriaxone. Continue HIV medications: Odefsey & Prezcobix Can be discharged with PO Levaquin X 7 days Subjective ROS Limited/Unobtainable: No Constitutional: Reports: no symptoms Respiratory: Reports: no symptoms Cardiovascular: Reports: no symptoms Gastrointestinal/Abdominal: Reports: no symptoms Genitourinary: Reports: no symptoms Allergies: Coded Allergies: No Known Allergies (Unverified , 05/16/20) Objective Last 24 Hour Vital Signs Date Time Temp Pulse Resp B/P (MAP) Pulse Ox O2 Delivery O2 Flow Rate FiO2 05/20/20 10:08 145/75 05/20/20 08:00 97.7 74 17 145/75 (98) 96 05/20/20 04:00 97.3 17 139/66 (90) 95 05/19/20 21:00 Nasal Cannula 2.0 05/19/20 20:00 98.1 78 17 148/79 (102) 96 05/19/20 16:00 99.1 73 18 137/65 (89) 96 05/19/20 12:00 97.8 82 18 126/64 (84) 96 Height (Feet): 6 Height (Inches): 1.00 Weight (Pounds): 200 General Appearance: no acute distress HEENT: mucous membranes moist Respiratory/Chest: no respiratory distress Cardiovascular: normal rate Abdomen: soft, non tender Extremities: no edema Neurologic/Psychiatric: alert, oriented x 3, responsive Current Medications Medications (Trade) Dose Ordered Sig/Carson Route PRN Reason Start Time Stop Time Status Last Admin Dose Admin Acetaminophen (Tylenol) 650 mg Q4H PRN ORAL Temp >100.5 05/16/20 11:30 06/15/20 11:29 05/18/20 04:19 Acetaminophen (Tylenol) 650 mg Q4H PRN ORAL Mild Pain (Pain Scale 1-3) 05/16/20 11:30 06/15/20 11:29 05/19/20 04:46 Amitriptyline HCl (Elavil) 50 mg BEDTIME ORAL 05/17/20 21:00 06/16/20 20:59 05/19/20 21:51 Benazepril HCl (Lotensin) 5 mg DAILY ORAL 05/18/20 09:00 06/17/20 08:59 05/20/20 10:08 Bupropion HCl (Wellbutrin XL) 150 mg DAILY ORAL 05/18/20 09:00 06/17/20 08:59 05/20/20 09:52 Ceftriaxone Sodium 2 gm/ Dextrose 110 ml @ 220 mls/hr Q24H IVPB 05/17/20 13:00 05/24/20 12:59 05/19/20 13:27 Dextrose/Sodium Chloride 1,000 ml @ 50 mls/hr Q20H IV 05/16/20 15:00 06/15/20 14:59 05/19/20 21:55 Enoxaparin Sodium (Lovenox) 40 mg DAILY SUBQ 05/17/20 09:00 08/15/20 08:59 05/19/20 09:58 Famotidine (Pepcid) 20 mg BID ORAL 05/16/20 18:00 08/14/20 17:59 05/20/20 09:51 Gabapentin (Neurontin) 800 mg Q8HR ORAL 05/17/20 14:00 06/16/20 13:59 05/20/20 06:12 Hydralazine HCl (Apresoline) 25 mg Q4H PRN ORAL bp over 160 syst 05/16/20 15:00 08/14/20 14:59 Multivitamins (Multivitamins) 1 tab DAILY ORAL 05/18/20 09:00 06/17/20 08:59 05/20/20 09:52 Tamsulosin HCl (Flomax) 0.4 mg BEDTIME ORAL 05/17/20 21:00 06/16/20 20:59 05/19/20 21:52 Tino Armas MD May 20, 2020 11:52
[2020-05-20 12:00] VITALS: BP 123/61
--- NOTE | 2020-05-20 12:10 | Nephrology Progress Note ---
Assessment/Plan Problem List: (1) Dehydration (2) Electrolyte imbalance (3) COVID-19 virus detected (4) Pyelonephritis (5) Sepsis Assessment Hyponatremia Low magnesium Sepsis COVID-19 virus detected Pyelonephritis Plan May 20: No labs drawn today. Stable renal parameters. Continue per consultants. May 19: Labs reviewed. Renal parameters stable. Continue per consultants. May 18: No labs drawn today. Continue to monitor electrolytes and renal parameters. Medication list reviewed. May 17: Labs reviewed. Electrolytes stable. Continue per consultants. Previously: Magnesium supplement Monitor electrolyte Saline bolus for low sodium Per orders Subjective ROS Limited/Unobtainable: No Constitutional: Reports: malaise Objective Objective Last 24 Hour Vital Signs Date Time Temp Pulse Resp B/P (MAP) Pulse Ox O2 Delivery O2 Flow Rate FiO2 05/20/20 10:08 145/75 05/20/20 08:00 97.7 74 17 145/75 (98) 96 05/20/20 04:00 97.3 17 139/66 (90) 95 05/19/20 21:00 Nasal Cannula 2.0 05/19/20 20:00 98.1 78 17 148/79 (102) 96 05/19/20 16:00 99.1 73 18 137/65 (89) 96 Intake and Output 05/19/20 05/20/20 19:00 07:00 Intake Total 50 ml 400 ml Balance 50 ml 400 ml IV Total 50 ml 400 ml Current Medications Medications (Trade) Dose Ordered Sig/Carson Route PRN Reason Start Time Stop Time Status Last Admin Dose Admin Acetaminophen (Tylenol) 650 mg Q4H PRN ORAL Temp >100.5 05/16/20 11:30 06/15/20 11:29 05/18/20 04:19 Acetaminophen (Tylenol) 650 mg Q4H PRN ORAL Mild Pain (Pain Scale 1-3) 05/16/20 11:30 06/15/20 11:29 05/19/20 04:46 Amitriptyline HCl (Elavil) 50 mg BEDTIME ORAL 05/17/20 21:00 06/16/20 20:59 05/19/20 21:51 Benazepril HCl (Lotensin) 5 mg DAILY ORAL 05/18/20 09:00 06/17/20 08:59 05/20/20 10:08 Bupropion HCl (Wellbutrin XL) 150 mg DAILY ORAL 05/18/20 09:00 06/17/20 08:59 05/20/20 09:52 Ceftriaxone Sodium 2 gm/ Dextrose 110 ml @ 220 mls/hr Q24H IVPB 05/17/20 13:00 05/24/20 12:59 05/19/20 13:27 Dextrose/Sodium Chloride 1,000 ml @ 50 mls/hr Q20H IV 05/16/20 15:00 06/15/20 14:59 05/19/20 21:55 Enoxaparin Sodium (Lovenox) 40 mg DAILY SUBQ 05/17/20 09:00 08/15/20 08:59 05/19/20 09:58 Famotidine (Pepcid) 20 mg BID ORAL 05/16/20 18:00 08/14/20 17:59 05/20/20 09:51 Gabapentin (Neurontin) 800 mg Q8HR ORAL 05/17/20 14:00 06/16/20 13:59 05/20/20 06:12 Hydralazine HCl (Apresoline) 25 mg Q4H PRN ORAL bp over 160 syst 05/16/20 15:00 08/14/20 14:59 Multivitamins (Multivitamins) 1 tab DAILY ORAL 05/18/20 09:00 06/17/20 08:59 05/20/20 09:52 Tamsulosin HCl (Flomax) 0.4 mg BEDTIME ORAL 05/17/20 21:00 06/16/20 20:59 05/19/20 21:52 Height (Feet): 6 Height (Inches): 1.00 Weight (Pounds): 200 General Appearance: no apparent distress Cardiovascular: normal rate Respiratory/Chest: decreased breath sounds Abdomen: distended Objective No change Vladislav Torres MD May 20, 2020 12:10
[2020-05-20] MEDS: Enoxaparin 40mg Inj SUBQ SCH (12:40)
--- NOTE | 2020-05-20 13:38 | NUR ---
CASE MANAGEMENT:REVIEW SI;COVID PNEUMONIA. PYELONEPHRITIS. SEPSIS. 99.1 78 18 148/79 95% 2L NC IS;ROCEPHIN IV Q24 LOVENOX SQ QD LOTENSIN PO QD ELAVIL PO HS FLOMAX PO QD MED SURG STATUS DCP;FROM HOME
[2020-05-20] MEDS: cefTRIAXone 2 GM in D5W 110 ML IVPB SCH (14:14)
[2020-05-20 16:00] VITALS: BP 129/70
[2020-05-20] MEDS: D5NS 1,000 ML IV SCH (18:22)
--- NOTE | 2020-05-20 19:30 | General Progress Note ---
Subjective ROS Limited/Unobtainable: Yes Allergies: Coded Allergies: No Known Allergies (Unverified , 05/16/20) Objective Last 24 Hour Vital Signs Date Time Temp Pulse Resp B/P (MAP) Pulse Ox O2 Delivery O2 Flow Rate FiO2 05/20/20 16:00 98.2 78 16 129/70 (89) 98 05/20/20 12:00 97.2 68 17 123/61 (81) 98 05/20/20 10:08 145/75 05/20/20 09:00 Nasal Cannula 2.0 05/20/20 08:00 97.7 74 17 145/75 (98) 96 05/20/20 04:00 97.3 17 139/66 (90) 95 05/19/20 21:00 Nasal Cannula 2.0 05/19/20 20:00 98.1 78 17 148/79 (102) 96 Intake and Output 05/19/20 05/20/20 19:00 07:00 Intake Total 50 ml 400 ml Balance 50 ml 400 ml IV Total 50 ml 400 ml Height (Feet): 6 Height (Inches): 1.00 Weight (Pounds): 200 Assessment/Plan Problem List: (1) Pyelonephritis ICD Codes: N12 - Tubulo-interstitial nephritis, not specified as acute or chronic SNOMED: 46690468 (2) COVID-19 virus detected ICD Codes: U07.1 - COVID-19 SNOMED: 6903473005785374 (3) Dehydration ICD Codes: E86.0 - Dehydration SNOMED: 80793712 (4) Electrolyte imbalance ICD Codes: E87.8 - Other disorders of electrolyte and fluid balance, not elsewhere classified SNOMED: 025153816 (5) Sepsis ICD Codes: A41.9 - Sepsis, unspecified organism SNOMED: 07320334 Qualifiers: Qualified Codes: A41.9 - Sepsis, unspecified organism Status: progressing Assessment/Plan: no acute events weak poor po intake at times covid + sepsis lyte abnormlaity is improving Julio César Santana MD May 20, 2020 19:30
--- NOTE | 2020-05-20 19:37 | NUR ---
NURSE HAND-OFF: Important Events on Shift: New new events. Two medications at bedside are ok for patient to take, per Dr. Stuart Armas. Patient Status: In no apparent distress. Diet: Regular Pending Orders: am labs. Pending Results/Labs:am labs. Pending MD notification:N/A Latest Vital Signs: Temperature 98.2 , Pulse 78 , B/P 129 /70 , Respiratory Rate 16 , O2 SAT 98 , Room Air, O2 Flow Rate 2.0 . Vital Sign Comment: N/A Latest Wooten Fall Score: 45 Fall Risk: High Risk Safety Measures: Call light Within Reach, Bed Alarm Zone 2, Side Rails Side Rails x2, Bed position Low and Locked. Fall Precautions: Yellow Socks Report given to Tereza Del Toro RN.
[2020-05-20 20:00] VITALS: BP 131/78
--- NOTE | 2020-05-20 20:02 | NUR ---
NURSE NOTES: Received patient awake,alert, verbal, resting in bed, comfortable.
[2020-05-20] MEDS: Tamsulosin 0.4mg cap ORAL SCH (20:53)
[2020-05-21] VITALS: BP 132/65
[2020-05-21 04:40] VITALS: BP 138/70
[2020-05-21 07:07] LABS: BASOPHILS % (AUTO) 0.9 % (0.0-2.0); HEMATOCRIT 35.4 % (42.0-52.0); HEMOGLOBIN 12.1 G/DL (14.2-18.0); LYMPHOCYTES % (AUTO) 31.8 % (20.0-45.0); MEAN CORPUSCULAR VOLUME 92 FL (80-99); NEUTROPHILS % (AUTO) 54.3 % (45.0-75.0); PLATELET COUNT 216 K/UL (150-450); RED BLOOD COUNT 3.84 M/UL (4.70-6.10); RED CELL DISTRIBUTION WIDTH 12.7 % (11.6-14.8); WHITE BLOOD COUNT 4.8 K/UL (4.8-10.8)
--- NOTE | 2020-05-21 07:32 | NUR ---
HAND-OFF: Report given to NIECY Martinez.
--- NOTE | 2020-05-21 07:35 | NUR ---
NURSE NOTES: Received report from NIECY Starks. Pt is a/o x 4, having breakfast. No SOB noted with room air. Denies any pain at this time. D5NS is running @ 50ml/hr via Lt hand IV access. Bed in lowest position, call light within reach. Will continue to monitor.
[2020-05-21 08:00] VITALS: BP 143/76
[2020-05-21 08:21] LABS: ALANINE AMINOTRANSFERASE 45 U/L (12-78); ALBUMIN 2.7 G/DL (3.4-5.0); ALBUMIN/GLOBULIN RATIO 0.6 (1.0-2.7); ALKALINE PHOSPHATASE 72 U/L (46-116); ANION GAP 11 mmol/L (5-15); ASPARTATE AMINO TRANSFERASE 45 U/L (15-37); BILIRUBIN,TOTAL 0.2 MG/DL (0.2-1.0); BLOOD UREA NITROGEN 16 mg/dL (7-18); CARBON DIOXIDE 22 MMOL/L (21-32); CHLORIDE 106 MMOL/L (98-107); CREATININE 1.1 MG/DL (0.55-1.30); PHOSPHORUS 3.6 MG/DL (2.5-4.9); POTASSIUM 3.4 MMOL/L (3.5-5.1); SODIUM 139 MMOL/L (136-145)
--- NOTE | 2020-05-21 08:47 | Pulmonology Progress Note ---
Subjective ROS Limited/Unobtainable: Yes Interval Events: lowgrade fever overnight Constitutional: Reports: no symptoms, fever - Tmax=99.5 HEENT: Repors: no symptoms Respiratory: Reports: no symptoms Cardiovascular: Reports: no symptoms Gastrointestinal/Abdominal: Reports: no symptoms Allergies: Coded Allergies: No Known Allergies (Unverified , 05/16/20) Objective Last 24 Hour Vital Signs Date Time Temp Pulse Resp B/P (MAP) Pulse Ox O2 Delivery O2 Flow Rate FiO2 05/21/20 04:40 99.5 67 20 138/70 (92) 95 05/21/20 00:00 98.2 65 20 132/65 (87) 96 05/20/20 20:09 Nasal Cannula 2.0 05/20/20 20:00 98.2 70 20 131/78 (95) 97 05/20/20 16:00 98.2 78 16 129/70 (89) 98 05/20/20 12:00 97.2 68 17 123/61 (81) 98 05/20/20 10:08 145/75 05/20/20 09:00 Nasal Cannula 2.0 Intake and Output 05/20/20 05/21/20 19:00 07:00 Intake Total 660 ml 600 ml Output Total 600 ml Balance 660 ml 0 ml IV Total 660 ml 600 ml Output Urine Total 600 ml General Appearance: no acute distress HEENT: atraumatic Respiratory: lungs clear Cardiovascular: normal rate, regular rhythm Abdomen: soft, non tender Laboratory Tests 05/21/20 06:00: White Blood Count 4.8, Red Blood Count 3.84L, Hemoglobin 12.1L, Hematocrit 35.4L , Mean Corpuscular Volume 92, Mean Corpuscular Hemoglobin 31.5H, Mean Corpuscular Hemoglobin Concent 34.3, Red Cell Distribution Width 12.7, Platelet Count 216, Mean Platelet Volume 6.6, Neutrophils (%) (Auto) 54.3, Lymphocytes (%) (Auto) 31.8, Monocytes (%) (Auto) 9.0, Eosinophils (%) (Auto) 4.0H, Basophils (%) (Auto) 0.9 05/21/20 06:10: Sodium Level 139, Potassium Level 3.4L, Chloride Level 106, Carbon Dioxide Level 22, Anion Gap 11, Blood Urea Nitrogen 16, Creatinine 1.1, Estimat Glomerular Filtration Rate > 60, Glucose Level 149H, Calcium Level 9.0, Phosphorus Level 3.6, Magnesium Level 2.1, Total Bilirubin 0.2, Aspartate Amino Transf (AST/SGOT) 45H, Alanine Aminotransferase (ALT/SGPT) 45, Alkaline Phosphatase 72, C-Reactive Protein, Quantitative 5.4H, Total Protein 7.4, Albumin 2.7L, Globulin 4.7, Albumin/Globulin Ratio 0.6L, Vitamin D 25-Hydroxy [Pending], 25-Hydroxy Vitamin D2 [Pending], 25-Hydroxy Vitamin D3 [Pending] Current Medications Medications (Trade) Dose Ordered Sig/Carson Route PRN Reason Start Time Stop Time Status Last Admin Dose Admin Acetaminophen (Tylenol) 650 mg Q4H PRN ORAL Temp >100.5 05/16/20 11:30 06/15/20 11:29 05/18/20 04:19 Acetaminophen (Tylenol) 650 mg Q4H PRN ORAL Mild Pain (Pain Scale 1-3) 05/16/20 11:30 06/15/20 11:29 05/19/20 04:46 Amitriptyline HCl (Elavil) 50 mg BEDTIME ORAL 05/17/20 21:00 06/16/20 20:59 05/20/20 20:53 Benazepril HCl (Lotensin) 5 mg DAILY ORAL 05/18/20 09:00 06/17/20 08:59 05/20/20 10:08 Bupropion HCl (Wellbutrin XL) 150 mg DAILY ORAL 05/18/20 09:00 06/17/20 08:59 05/20/20 09:52 Ceftriaxone Sodium 2 gm/ Dextrose 110 ml @ 220 mls/hr Q24H IVPB 05/17/20 13:00 05/24/20 12:59 05/20/20 14:14 Dextrose/Sodium Chloride 1,000 ml @ 50 mls/hr Q20H IV 05/16/20 15:00 06/15/20 14:59 05/20/20 18:22 Enoxaparin Sodium (Lovenox) 40 mg DAILY SUBQ 05/17/20 09:00 08/15/20 08:59 05/20/20 12:40 Famotidine (Pepcid) 20 mg BID ORAL 05/16/20 18:00 08/14/20 17:59 05/20/20 17:31 Gabapentin (Neurontin) 800 mg Q8HR ORAL 05/17/20 14:00 06/16/20 13:59 05/21/20 05:39 Hydralazine HCl (Apresoline) 25 mg Q4H PRN ORAL bp over 160 syst 05/16/20 15:00 08/14/20 14:59 Multivitamins (Multivitamins) 1 tab DAILY ORAL 05/18/20 09:00 06/17/20 08:59 05/20/20 09:52 Tamsulosin HCl (Flomax) 0.4 mg BEDTIME ORAL 05/17/20 21:00 06/16/20 20:59 05/20/20 20:53 Assessment/Plan Assessment/Plan 1. COVID-19 pneumonia -Droplet isolation -Currently saturating well on room air with normal work of breathing; no indication for specific therapy for COVID-19 at this time -Continue monitor for hypoxemia, and provide supplemental oxygen as needed -Supportive care -Follow-up imaging if indicated 2. Respiratory distress on arrival; now improved on room air - pt is using low flow oxygen for comfort; saturates at 95% on room air 2. Hypertension - per primary MD 3. Elevated inflammatory markers -We will initiate Lovenox for DVT prophylaxis 4. Hyponatremia -Per primary MD 5. Pyelonephritis -ID following 6. Sepsis - ID following 7. Bacteremia 8. E Coli UTI - ID following 9. HIV - Continue home HIV meds: Odefsey & Prezcobix Medically stable for discharge from pulmonary standpoint The care for this patient was discussed with my supervising physician. Time spent for this case was approximately 31 minutes. Billy Ly May 21, 2020 08:47
[2020-05-21] MEDS: Benazepril 10mg tab ORAL SCH (09:42)
[2020-05-21] MEDS: BuPROPion XL 150mg tab ORAL SCH (09:43)
[2020-05-21] MEDS: Enoxaparin 40mg Inj SUBQ SCH (09:44)
[2020-05-21 12:00] VITALS: BP 146/78
--- NOTE | 2020-05-21 12:40 | Infectious Diseases Prog Note ---
Assessment/Plan Assessment/Plan IMPRESSION: 1. E. coli sepsis. 2. Pyelonephritis with E.coli 3. COVID-positive, likely mild disease or recent infection. 4. HIV. 5. BPH. 6. Depression. 7. Acidosis. 8. Hypertension. RECOMMENDATION: Continue ceftriaxone in hospital Continue HIV medications: Odefsey & Prezcobix Can be discharged with PO Levaquin X 7 days Subjective ROS Limited/Unobtainable: No Respiratory: Reports: no symptoms Cardiovascular: Reports: no symptoms Gastrointestinal/Abdominal: Reports: no symptoms Genitourinary: Reports: no symptoms Allergies: Coded Allergies: No Known Allergies (Unverified , 05/16/20) Objective Last 24 Hour Vital Signs Date Time Temp Pulse Resp B/P (MAP) Pulse Ox O2 Delivery O2 Flow Rate FiO2 05/21/20 12:00 97.7 78 18 146/78 (100) 95 05/21/20 09:42 143/76 05/21/20 09:00 Room Air 05/21/20 08:00 98.0 63 18 143/76 (98) 96 05/21/20 04:40 99.5 67 20 138/70 (92) 95 05/21/20 00:00 98.2 65 20 132/65 (87) 96 05/20/20 20:09 Nasal Cannula 2.0 05/20/20 20:00 98.2 70 20 131/78 (95) 97 05/20/20 16:00 98.2 78 16 129/70 (89) 98 Height (Feet): 6 Height (Inches): 1.00 Weight (Pounds): 200 General Appearance: no acute distress HEENT: mucous membranes moist Respiratory/Chest: lungs clear Cardiovascular: normal rate Abdomen: soft, non tender Extremities: no edema Neurologic/Psychiatric: alert, responsive Laboratory Tests Test 05/21/20 06:00 05/21/20 06:10 White Blood Count 4.8 K/UL (4.8-10.8) Red Blood Count 3.84 M/UL (4.70-6.10) L Hemoglobin 12.1 G/DL (14.2-18.0) L Hematocrit 35.4 % (42.0-52.0) L Mean Corpuscular Volume 92 FL (80-99) Mean Corpuscular Hemoglobin 31.5 PG (27.0-31.0) H Mean Corpuscular Hemoglobin Concent 34.3 G/DL (32.0-36.0) Red Cell Distribution Width 12.7 % (11.6-14.8) Platelet Count 216 K/UL (150-450) Mean Platelet Volume 6.6 FL (6.5-10.1) Neutrophils (%) (Auto) 54.3 % (45.0-75.0) Lymphocytes (%) (Auto) 31.8 % (20.0-45.0) Monocytes (%) (Auto) 9.0 % (1.0-10.0) Eosinophils (%) (Auto) 4.0 % (0.0-3.0) H Basophils (%) (Auto) 0.9 % (0.0-2.0) Sodium Level 139 MMOL/L (136-145) Potassium Level 3.4 MMOL/L (3.5-5.1) L Chloride Level 106 MMOL/L (98-107) Carbon Dioxide Level 22 MMOL/L (21-32) Anion Gap 11 mmol/L (5-15) Blood Urea Nitrogen 16 mg/dL (7-18) Creatinine 1.1 MG/DL (0.55-1.30) Estimat Glomerular Filtration Rate > 60 mL/min (>60) Glucose Level 149 MG/DL (74-106) H Calcium Level 9.0 MG/DL (8.5-10.1) Phosphorus Level 3.6 MG/DL (2.5-4.9) Magnesium Level 2.1 MG/DL (1.8-2.4) Total Bilirubin 0.2 MG/DL (0.2-1.0) Aspartate Amino Transf (AST/SGOT) 45 U/L (15-37) H Alanine Aminotransferase (ALT/SGPT) 45 U/L (12-78) Alkaline Phosphatase 72 U/L (46-116) C-Reactive Protein, Quantitative 5.4 mg/dL (0.00-0.90) H Total Protein 7.4 G/DL (6.4-8.2) Albumin 2.7 G/DL (3.4-5.0) L Globulin 4.7 g/dL Albumin/Globulin Ratio 0.6 (1.0-2.7) L Vitamin D 25-Hydroxy Pending 25-Hydroxy Vitamin D2 Pending 25-Hydroxy Vitamin D3 Pending Current Medications Medications (Trade) Dose Ordered Sig/Carson Route PRN Reason Start Time Stop Time Status Last Admin Dose Admin Acetaminophen (Tylenol) 650 mg Q4H PRN ORAL Temp >100.5 05/16/20 11:30 06/15/20 11:29 05/18/20 04:19 Acetaminophen (Tylenol) 650 mg Q4H PRN ORAL Mild Pain (Pain Scale 1-3) 05/16/20 11:30 06/15/20 11:29 05/19/20 04:46 Amitriptyline HCl (Elavil) 50 mg BEDTIME ORAL 05/17/20 21:00 06/16/20 20:59 05/20/20 20:53 Benazepril HCl (Lotensin) 5 mg DAILY ORAL 05/18/20 09:00 06/17/20 08:59 05/21/20 09:42 Bupropion HCl (Wellbutrin XL) 150 mg DAILY ORAL 05/18/20 09:00 06/17/20 08:59 05/21/20 09:43 Ceftriaxone Sodium 2 gm/ Dextrose 110 ml @ 220 mls/hr Q24H IVPB 05/17/20 13:00 05/24/20 12:59 05/20/20 14:14 Dextrose/Sodium Chloride 1,000 ml @ 50 mls/hr Q20H IV 05/16/20 15:00 06/15/20 14:59 05/20/20 18:22 Enoxaparin Sodium (Lovenox) 40 mg DAILY SUBQ 05/17/20 09:00 08/15/20 08:59 05/21/20 09:44 Famotidine (Pepcid) 20 mg BID ORAL 05/16/20 18:00 08/14/20 17:59 05/21/20 09:43 Gabapentin (Neurontin) 800 mg Q8HR ORAL 05/17/20 14:00 06/16/20 13:59 05/21/20 05:39 Hydralazine HCl (Apresoline) 25 mg Q4H PRN ORAL bp over 160 syst 05/16/20 15:00 08/14/20 14:59 Multivitamins (Multivitamins) 1 tab DAILY ORAL 05/18/20 09:00 06/17/20 08:59 05/21/20 09:43 Potassium Chloride (K-Dur) 40 meq DAILY ORAL 05/21/20 09:30 08/19/20 09:29 05/21/20 09:42 Tamsulosin HCl (Flomax) 0.4 mg BEDTIME ORAL 05/17/20 21:00 06/16/20 20:59 05/20/20 20:53 Tino Armas MD May 21, 2020 12:40
[2020-05-21] MEDS: cefTRIAXone 2 GM in D5W 110 ML IVPB SCH (13:10)
--- NOTE | 2020-05-21 13:24 | NUR ---
Resource Room Special Education TeacherBilling Representative SI: COVID PNA T-97.7, HR 78, RR 18, BP 146/78, O2 sat 95% K+ 3.4 IS: K-Dur PO QD Lotensin PO QD Flomax PO QD Rocephin IV QD Pepcid PO BID D5/NS @ 50cc/hr Med/Surg Status
--- NOTE | 2020-05-21 13:33 | Nephrology Progress Note ---
Assessment/Plan Problem List: (1) Dehydration (2) Electrolyte imbalance (3) COVID-19 virus detected (4) Pyelonephritis (5) Sepsis Assessment Hyponatremia Low magnesium Sepsis COVID-19 virus detected Pyelonephritis Plan May 21: Labs reviewed. Low potassium addressed. Continue per consultants. May 20: No labs drawn today. Stable renal parameters. Continue per consultants. May 19: Labs reviewed. Renal parameters stable. Continue per consultants. May 18: No labs drawn today. Continue to monitor electrolytes and renal parameters. Medication list reviewed. May 17: Labs reviewed. Electrolytes stable. Continue per consultants. Previously: Magnesium supplement Monitor electrolyte Saline bolus for low sodium Per orders Subjective ROS Limited/Unobtainable: No Constitutional: Reports: malaise Objective Objective Last 24 Hour Vital Signs Date Time Temp Pulse Resp B/P (MAP) Pulse Ox O2 Delivery O2 Flow Rate FiO2 05/21/20 12:00 97.7 78 18 146/78 (100) 95 05/21/20 09:42 143/76 05/21/20 09:00 Room Air 05/21/20 08:00 98.0 63 18 143/76 (98) 96 05/21/20 04:40 99.5 67 20 138/70 (92) 95 05/21/20 00:00 98.2 65 20 132/65 (87) 96 05/20/20 20:09 Nasal Cannula 2.0 05/20/20 20:00 98.2 70 20 131/78 (95) 97 05/20/20 16:00 98.2 78 16 129/70 (89) 98 Intake and Output 05/20/20 05/21/20 19:00 07:00 Intake Total 660 ml 600 ml Output Total 600 ml Balance 660 ml 0 ml IV Total 660 ml 600 ml Output Urine Total 600 ml Current Medications Medications (Trade) Dose Ordered Sig/Carson Route PRN Reason Start Time Stop Time Status Last Admin Dose Admin Acetaminophen (Tylenol) 650 mg Q4H PRN ORAL Temp >100.5 05/16/20 11:30 06/15/20 11:29 05/18/20 04:19 Acetaminophen (Tylenol) 650 mg Q4H PRN ORAL Mild Pain (Pain Scale 1-3) 05/16/20 11:30 06/15/20 11:29 05/19/20 04:46 Amitriptyline HCl (Elavil) 50 mg BEDTIME ORAL 05/17/20 21:00 06/16/20 20:59 05/20/20 20:53 Benazepril HCl (Lotensin) 5 mg DAILY ORAL 05/18/20 09:00 06/17/20 08:59 05/21/20 09:42 Bupropion HCl (Wellbutrin XL) 150 mg DAILY ORAL 05/18/20 09:00 06/17/20 08:59 05/21/20 09:43 Ceftriaxone Sodium 2 gm/ Dextrose 110 ml @ 220 mls/hr Q24H IVPB 05/17/20 13:00 05/24/20 12:59 05/21/20 13:10 Dextrose/Sodium Chloride 1,000 ml @ 50 mls/hr Q20H IV 05/16/20 15:00 06/15/20 14:59 05/20/20 18:22 Enoxaparin Sodium (Lovenox) 40 mg DAILY SUBQ 05/17/20 09:00 08/15/20 08:59 05/21/20 09:44 Famotidine (Pepcid) 20 mg BID ORAL 05/16/20 18:00 08/14/20 17:59 05/21/20 09:43 Gabapentin (Neurontin) 800 mg Q8HR ORAL 05/17/20 14:00 06/16/20 13:59 05/21/20 13:09 Hydralazine HCl (Apresoline) 25 mg Q4H PRN ORAL bp over 160 syst 05/16/20 15:00 08/14/20 14:59 Multivitamins (Multivitamins) 1 tab DAILY ORAL 05/18/20 09:00 06/17/20 08:59 05/21/20 09:43 Potassium Chloride (K-Dur) 40 meq DAILY ORAL 05/21/20 09:30 08/19/20 09:29 05/21/20 09:42 Tamsulosin HCl (Flomax) 0.4 mg BEDTIME ORAL 05/17/20 21:00 06/16/20 20:59 05/20/20 20:53 Laboratory Tests 05/21/20 06:00: White Blood Count 4.8, Red Blood Count 3.84L, Hemoglobin 12.1L, Hematocrit 35.4L , Mean Corpuscular Volume 92, Mean Corpuscular Hemoglobin 31.5H, Mean Corpuscular Hemoglobin Concent 34.3, Red Cell Distribution Width 12.7, Platelet Count 216, Mean Platelet Volume 6.6, Neutrophils (%) (Auto) 54.3, Lymphocytes (%) (Auto) 31.8, Monocytes (%) (Auto) 9.0, Eosinophils (%) (Auto) 4.0H, Basophils (%) (Auto) 0.9 05/21/20 06:10: Sodium Level 139, Potassium Level 3.4L, Chloride Level 106, Carbon Dioxide Level 22, Anion Gap 11, Blood Urea Nitrogen 16, Creatinine 1.1, Estimat Glomerular Filtration Rate > 60, Glucose Level 149H, Calcium Level 9.0, Phosphorus Level 3.6, Magnesium Level 2.1, Total Bilirubin 0.2, Aspartate Amino Transf (AST/SGOT) 45H, Alanine Aminotransferase (ALT/SGPT) 45, Alkaline Phosphatase 72, C-Reactive Protein, Quantitative 5.4H, Total Protein 7.4, Albumin 2.7L, Globulin 4.7, Albumin/Globulin Ratio 0.6L, Vitamin D 25-Hydroxy [Pending], 25-Hydroxy Vitamin D2 [Pending], 25-Hydroxy Vitamin D3 [Pending] Height (Feet): 6 Height (Inches): 1.00 Weight (Pounds): 200 General Appearance: no apparent distress Cardiovascular: normal rate Respiratory/Chest: decreased breath sounds Abdomen: soft Objective No change Vladislav Torres MD May 21, 2020 13:33
[2020-05-21] MEDS: D5NS 1,000 ML IV SCH (15:04)
[2020-05-21 16:00] VITALS: BP 121/64
--- NOTE | 2020-05-21 19:13 | NUR ---
NURSE HAND-OFF: Important Events on Shift:No new event Patient Status: stable Diet: regular Pending Orders: n/a Pending Results/Labs:n/a Pending MD notification:n/a Latest Vital Signs: Temperature 97.8 , Pulse 69 , B/P 121 /64 , Respiratory Rate 18 , O2 SAT 94 , Room Air, O2 Flow Rate 2.0 . Vital Sign Comment: stable Latest Wooten Fall Score: 35 Fall Risk: Medium Risk Safety Measures: Call light Within Reach, Bed Alarm Zone 2, Side Rails Side Rails x2, Bed position Low and Locked. Fall Precautions: Yellow Socks Report given to NIECY Starks.
--- NOTE | 2020-05-21 19:51 | NUR ---
NURSE NOTES: received patient awake, alert, verbal, resting in bed, no SOB, no complaints.
[2020-05-21 20:00] VITALS: BP 155/72
[2020-05-21] MEDS: Tamsulosin 0.4mg cap ORAL SCH (20:20)
--- NOTE | 2020-05-21 21:33 | General Progress Note ---
Subjective ROS Limited/Unobtainable: Yes Allergies: Coded Allergies: No Known Allergies (Unverified , 05/16/20) Objective Last 24 Hour Vital Signs Date Time Temp Pulse Resp B/P (MAP) Pulse Ox O2 Delivery O2 Flow Rate FiO2 05/21/20 21:08 Nasal Cannula 2.0 05/21/20 20:00 98.2 76 16 155/72 (99) 96 05/21/20 16:00 97.8 69 18 121/64 (83) 94 05/21/20 12:00 97.7 78 18 146/78 (100) 95 05/21/20 09:42 143/76 05/21/20 09:00 Room Air 05/21/20 08:00 98.0 63 18 143/76 (98) 96 05/21/20 04:40 99.5 67 20 138/70 (92) 95 05/21/20 00:00 98.2 65 20 132/65 (87) 96 Intake and Output 05/20/20 05/21/20 19:00 07:00 Intake Total 660 ml 600 ml Output Total 600 ml Balance 660 ml 0 ml IV Total 660 ml 600 ml Output Urine Total 600 ml Laboratory Tests 05/21/20 06:00: White Blood Count 4.8, Red Blood Count 3.84L, Hemoglobin 12.1L, Hematocrit 35.4L , Mean Corpuscular Volume 92, Mean Corpuscular Hemoglobin 31.5H, Mean Corpuscular Hemoglobin Concent 34.3, Red Cell Distribution Width 12.7, Platelet Count 216, Mean Platelet Volume 6.6, Neutrophils (%) (Auto) 54.3, Lymphocytes (%) (Auto) 31.8, Monocytes (%) (Auto) 9.0, Eosinophils (%) (Auto) 4.0H, Basophils (%) (Auto) 0.9 05/21/20 06:10: Sodium Level 139, Potassium Level 3.4L, Chloride Level 106, Carbon Dioxide Level 22, Anion Gap 11, Blood Urea Nitrogen 16, Creatinine 1.1, Estimat Glomerular Filtration Rate > 60, Glucose Level 149H, Calcium Level 9.0, Phosphorus Level 3.6, Magnesium Level 2.1, Total Bilirubin 0.2, Aspartate Amino Transf (AST/SGOT) 45H, Alanine Aminotransferase (ALT/SGPT) 45, Alkaline Phosphatase 72, C-Reactive Protein, Quantitative 5.4H, Total Protein 7.4, Albumin 2.7L, Globulin 4.7, Albumin/Globulin Ratio 0.6L, Vitamin D 25-Hydroxy [Pending], 25-Hydroxy Vitamin D2 [Pending], 25-Hydroxy Vitamin D3 [Pending] Height (Feet): 6 Height (Inches): 1.00 Weight (Pounds): 200 Assessment/Plan Problem List: (1) Pyelonephritis ICD Codes: N12 - Tubulo-interstitial nephritis, not specified as acute or chronic SNOMED: 30547301 (2) COVID-19 virus detected ICD Codes: U07.1 - COVID-19 SNOMED: 7870575121505741 (3) Dehydration ICD Codes: E86.0 - Dehydration SNOMED: 29638088 (4) Electrolyte imbalance ICD Codes: E87.8 - Other disorders of electrolyte and fluid balance, not elsewhere classified SNOMED: 792295411 (5) Sepsis ICD Codes: A41.9 - Sepsis, unspecified organism SNOMED: 92380320 Qualifiers: Qualified Codes: A41.9 - Sepsis, unspecified organism Status: progressing Assessment/Plan: reviewed chart and labs afebrile covid + sepsis lytes improved no acute changes uti Julio César Santana MD May 21, 2020 21:33
[2020-05-22 00:13] VITALS: BP 148/75
[2020-05-22 04:32] VITALS: BP 142/73
--- NOTE | 2020-05-22 07:05 | NUR ---
HAND-OFF: Report given to NIECY Vasquez/Mnioo Aranda RN.
--- NOTE | 2020-05-22 07:15 | NUR ---
NURSE NOTES: Received report from Tereza PEMBERTON. Patient is awake in bed alert and oriented x4. IVF running per order. On room air, no Sob, not in acute distress, Patient reports no pain. Updated on care plan. Call light in reach, bed in lowest position, side rails up.
[2020-05-22 08:00] VITALS: BP 151/72
[2020-05-22] MEDS: BuPROPion XL 150mg tab ORAL SCH (08:33)
[2020-05-22] MEDS: Enoxaparin 40mg Inj SUBQ SCH (08:34)
[2020-05-22] MEDS: Benazepril 10mg tab ORAL SCH (08:45)
--- NOTE | 2020-05-22 10:07 | Infectious Diseases Prog Note ---
Assessment/Plan Assessment/Plan IMPRESSION: 1. E. coli sepsis. 2. Pyelonephritis with E.coli 3. COVID-positive, likely mild disease or recent infection. 4. HIV. 5. BPH. 6. Depression. 7. Acidosis. 8. Hypertension. RECOMMENDATION: Continue ceftriaxone in hospital Continue HIV medications: Odefsey & Prezcobix Can be discharged with PO Levaquin X 7 days Subjective ROS Limited/Unobtainable: No Respiratory: Reports: no symptoms Gastrointestinal/Abdominal: Reports: no symptoms Genitourinary: Reports: no symptoms Allergies: Coded Allergies: No Known Allergies (Unverified , 05/16/20) Objective Last 24 Hour Vital Signs Date Time Temp Pulse Resp B/P (MAP) Pulse Ox O2 Delivery O2 Flow Rate FiO2 05/22/20 08:45 151/72 05/22/20 04:32 97.7 64 17 142/73 (96) 98 05/22/20 00:13 97.6 69 17 148/75 (99) 97 05/21/20 21:08 Nasal Cannula 2.0 05/21/20 20:00 98.2 76 16 155/72 (99) 96 05/21/20 16:00 97.8 69 18 121/64 (83) 94 05/21/20 12:00 97.7 78 18 146/78 (100) 95 Height (Feet): 6 Height (Inches): 1.00 Weight (Pounds): 200 General Appearance: no acute distress HEENT: mucous membranes moist Respiratory/Chest: lungs clear Cardiovascular: normal rate Abdomen: soft, non tender Extremities: no edema Neurologic/Psychiatric: alert, oriented x 3, responsive Current Medications Medications (Trade) Dose Ordered Sig/Carson Route PRN Reason Start Time Stop Time Status Last Admin Dose Admin Acetaminophen (Tylenol) 650 mg Q4H PRN ORAL Temp >100.5 05/16/20 11:30 06/15/20 11:29 05/18/20 04:19 Acetaminophen (Tylenol) 650 mg Q4H PRN ORAL Mild Pain (Pain Scale 1-3) 05/16/20 11:30 06/15/20 11:29 05/19/20 04:46 Amitriptyline HCl (Elavil) 50 mg BEDTIME ORAL 05/17/20 21:00 06/16/20 20:59 05/21/20 20:21 Benazepril HCl (Lotensin) 5 mg DAILY ORAL 05/18/20 09:00 06/17/20 08:59 05/22/20 08:45 Bupropion HCl (Wellbutrin XL) 150 mg DAILY ORAL 05/18/20 09:00 06/17/20 08:59 05/22/20 08:33 Ceftriaxone Sodium 2 gm/ Dextrose 110 ml @ 220 mls/hr Q24H IVPB 05/17/20 13:00 05/24/20 12:59 05/21/20 13:10 Dextrose/Sodium Chloride 1,000 ml @ 50 mls/hr Q20H IV 05/16/20 15:00 06/15/20 14:59 05/21/20 15:04 Enoxaparin Sodium (Lovenox) 40 mg DAILY SUBQ 05/17/20 09:00 08/15/20 08:59 05/22/20 08:34 Famotidine (Pepcid) 20 mg BID ORAL 05/16/20 18:00 08/14/20 17:59 05/22/20 08:33 Gabapentin (Neurontin) 800 mg Q8HR ORAL 05/17/20 14:00 06/16/20 13:59 05/22/20 05:10 Hydralazine HCl (Apresoline) 25 mg Q4H PRN ORAL bp over 160 syst 05/16/20 15:00 08/14/20 14:59 Multivitamins (Multivitamins) 1 tab DAILY ORAL 05/18/20 09:00 06/17/20 08:59 05/22/20 08:33 Potassium Chloride (K-Dur) 40 meq DAILY ORAL 05/21/20 09:30 08/19/20 09:29 05/22/20 08:44 Tamsulosin HCl (Flomax) 0.4 mg BEDTIME ORAL 05/17/20 21:00 06/16/20 20:59 05/21/20 20:20 Tino Armas MD May 22, 2020 10:07
--- NOTE | 2020-05-22 10:30 | NUR ---
CASE MANAGEMENT:REVIEW 05/22/20 SI:COVID PNEUMONIA. E COLI SEPSIS. 97.7 64 17 142/73 98% ON 2L/NC IS;ROCEPHIN IV Q24 IVF@50/HR LOVENOX SQ QD K-DUR PO QD LOTENSIN PO QD ELAVIL PO HS FLOMAX PO QD NEURONTIN PO Q8HRS : MED/SURG STATUS 4 EAST DCP: FROM HOME PLAN: TITRATE OXYGEN IF ABLE
[2020-05-22] MEDS: D5NS 1,000 ML IV SCH (11:31)
--- NOTE | 2020-05-22 11:53 | Pulmonology Progress Note ---
Subjective ROS Limited/Unobtainable: No Interval Events: lowgrade fever overnight Constitutional: Reports: no symptoms, fever - Tmax=99.5 HEENT: Repors: no symptoms Respiratory: Reports: no symptoms Cardiovascular: Reports: no symptoms Gastrointestinal/Abdominal: Reports: no symptoms Allergies: Coded Allergies: No Known Allergies (Unverified , 05/16/20) Objective Last 24 Hour Vital Signs Date Time Temp Pulse Resp B/P (MAP) Pulse Ox O2 Delivery O2 Flow Rate FiO2 05/22/20 09:00 Room Air 05/22/20 08:45 151/72 05/22/20 08:00 97.9 67 18 151/72 (98) 96 05/22/20 04:32 97.7 64 17 142/73 (96) 98 05/22/20 00:13 97.6 69 17 148/75 (99) 97 05/21/20 21:08 Nasal Cannula 2.0 05/21/20 20:00 98.2 76 16 155/72 (99) 96 05/21/20 16:00 97.8 69 18 121/64 (83) 94 05/21/20 12:00 97.7 78 18 146/78 (100) 95 Intake and Output 05/21/20 05/22/20 19:00 07:00 Intake Total 1190 ml 960 ml Balance 1190 ml 960 ml Intake Oral 480 ml IV Total 710 ml 600 ml Other 360 ml # Voids 3 2 General Appearance: no acute distress HEENT: atraumatic Respiratory: lungs clear Cardiovascular: normal rate, regular rhythm Abdomen: soft, non tender Current Medications Medications (Trade) Dose Ordered Sig/Carson Route PRN Reason Start Time Stop Time Status Last Admin Dose Admin Acetaminophen (Tylenol) 650 mg Q4H PRN ORAL Temp >100.5 05/16/20 11:30 06/15/20 11:29 05/18/20 04:19 Acetaminophen (Tylenol) 650 mg Q4H PRN ORAL Mild Pain (Pain Scale 1-3) 05/16/20 11:30 06/15/20 11:29 05/19/20 04:46 Amitriptyline HCl (Elavil) 50 mg BEDTIME ORAL 05/17/20 21:00 06/16/20 20:59 05/21/20 20:21 Benazepril HCl (Lotensin) 5 mg DAILY ORAL 05/18/20 09:00 06/17/20 08:59 05/22/20 08:45 Bupropion HCl (Wellbutrin XL) 150 mg DAILY ORAL 05/18/20 09:00 06/17/20 08:59 05/22/20 08:33 Ceftriaxone Sodium 2 gm/ Dextrose 110 ml @ 220 mls/hr Q24H IVPB 05/17/20 13:00 05/24/20 12:59 05/21/20 13:10 Dextrose/Sodium Chloride 1,000 ml @ 50 mls/hr Q20H IV 05/16/20 15:00 06/15/20 14:59 05/22/20 11:31 Enoxaparin Sodium (Lovenox) 40 mg DAILY SUBQ 05/17/20 09:00 08/15/20 08:59 05/22/20 08:34 Famotidine (Pepcid) 20 mg BID ORAL 05/16/20 18:00 08/14/20 17:59 05/22/20 08:33 Gabapentin (Neurontin) 800 mg Q8HR ORAL 05/17/20 14:00 06/16/20 13:59 05/22/20 05:10 Hydralazine HCl (Apresoline) 25 mg Q4H PRN ORAL bp over 160 syst 05/16/20 15:00 08/14/20 14:59 Multivitamins (Multivitamins) 1 tab DAILY ORAL 05/18/20 09:00 06/17/20 08:59 05/22/20 08:33 Potassium Chloride (K-Dur) 40 meq DAILY ORAL 05/21/20 09:30 08/19/20 09:29 05/22/20 08:44 Tamsulosin HCl (Flomax) 0.4 mg BEDTIME ORAL 05/17/20 21:00 06/16/20 20:59 05/21/20 20:20 Assessment/Plan Assessment/Plan ssessment/Plan 1. COVID-19 pneumonia -Droplet isolation -Currently saturating well on room air with normal work of breathing; no indication for specific therapy for COVID-19 at this time -Continue monitor for hypoxemia, and provide supplemental oxygen as needed -Supportive care -Follow-up imaging if indicated 2. Respiratory distress on arrival; now improved on room air - R/A 96% 2. Hypertension - per primary MD 3. Elevated inflammatory markers -We will initiate Lovenox for DVT prophylaxis 4. Hyponatremia -Per primary MD 5. Pyelonephritis -ID following 6. Sepsis - ID following 7. Bacteremia 8. E Coli UTI - ID following 9. HIV - Continue home HIV meds: Odefsey & Prezcobix 10. Pending Discharge Medically stable for discharge from pulmonary standpoint The care for this patient was discussed with my supervising physician Tee Wheeler NP May 22, 2020 11:53
[2020-05-22 12:00] VITALS: BP 157/81
[2020-05-22] MEDS ORDERED: LEVOFLOXACIN500 MG ORAL (12:43)
[2020-05-22] MEDS: cefTRIAXone 2 GM in D5W 110 ML IVPB SCH (13:49)
--- NOTE | 2020-05-22 15:18 | NUR ---
NURSE NOTES: Patient discharged. Stable condition, on room air, no Sob. Walked to private vehicle safely accompanied by son. IV removed, wristband removed. Discharge papers signed, belongings checked with patient. Home medications returned to patient.
--- NOTE | 2020-05-22 15:23 | Nephrology Progress Note ---
Assessment/Plan Problem List: (1) Dehydration (2) Electrolyte imbalance (3) COVID-19 virus detected (4) Pyelonephritis (5) Sepsis Assessment Hyponatremia Low magnesium Sepsis COVID-19 virus detected Pyelonephritis Plan May 22: No labs drawn today. Medication reviewed. Okay to discharge from renal standpoint of view. May 21: Labs reviewed. Low potassium addressed. Continue per consultants. May 20: No labs drawn today. Stable renal parameters. Continue per consultants. May 19: Labs reviewed. Renal parameters stable. Continue per consultants. May 18: No labs drawn today. Continue to monitor electrolytes and renal parameters. Medication list reviewed. May 17: Labs reviewed. Electrolytes stable. Continue per consultants. Previously: Magnesium supplement Monitor electrolyte Saline bolus for low sodium Per orders Subjective ROS Limited/Unobtainable: No Objective Objective Last 24 Hour Vital Signs Date Time Temp Pulse Resp B/P (MAP) Pulse Ox O2 Delivery O2 Flow Rate FiO2 05/22/20 12:00 98.0 77 18 157/81 (106) 96 05/22/20 09:00 Room Air 05/22/20 08:45 151/72 05/22/20 08:00 97.9 67 18 151/72 (98) 96 05/22/20 04:32 97.7 64 17 142/73 (96) 98 05/22/20 00:13 97.6 69 17 148/75 (99) 97 05/21/20 21:08 Nasal Cannula 2.0 05/21/20 20:00 98.2 76 16 155/72 (99) 96 05/21/20 16:00 97.8 69 18 121/64 (83) 94 Intake and Output 05/21/20 05/22/20 19:00 07:00 Intake Total 1190 ml 960 ml Balance 1190 ml 960 ml Intake Oral 480 ml IV Total 710 ml 600 ml Other 360 ml # Voids 3 2 Current Medications Medications (Trade) Dose Ordered Sig/Carson Route PRN Reason Start Time Stop Time Status Last Admin Dose Admin Acetaminophen (Tylenol) 650 mg Q4H PRN ORAL Temp >100.5 05/16/20 11:30 06/15/20 11:29 05/18/20 04:19 Acetaminophen (Tylenol) 650 mg Q4H PRN ORAL Mild Pain (Pain Scale 1-3) 05/16/20 11:30 06/15/20 11:29 05/19/20 04:46 Amitriptyline HCl (Elavil) 50 mg BEDTIME ORAL 05/17/20 21:00 06/16/20 20:59 05/21/20 20:21 Benazepril HCl (Lotensin) 5 mg DAILY ORAL 05/18/20 09:00 06/17/20 08:59 05/22/20 08:45 Bupropion HCl (Wellbutrin XL) 150 mg DAILY ORAL 05/18/20 09:00 06/17/20 08:59 05/22/20 08:33 Ceftriaxone Sodium 2 gm/ Dextrose 110 ml @ 220 mls/hr Q24H IVPB 05/17/20 13:00 05/24/20 12:59 05/22/20 13:49 Dextrose/Sodium Chloride 1,000 ml @ 50 mls/hr Q20H IV 05/16/20 15:00 06/15/20 14:59 05/22/20 11:31 Enoxaparin Sodium (Lovenox) 40 mg DAILY SUBQ 05/17/20 09:00 08/15/20 08:59 05/22/20 08:34 Famotidine (Pepcid) 20 mg BID ORAL 05/16/20 18:00 08/14/20 17:59 05/22/20 08:33 Gabapentin (Neurontin) 800 mg Q8HR ORAL 05/17/20 14:00 06/16/20 13:59 05/22/20 13:49 Hydralazine HCl (Apresoline) 25 mg Q4H PRN ORAL bp over 160 syst 05/16/20 15:00 08/14/20 14:59 Multivitamins (Multivitamins) 1 tab DAILY ORAL 05/18/20 09:00 06/17/20 08:59 05/22/20 08:33 Potassium Chloride (K-Dur) 40 meq DAILY ORAL 05/21/20 09:30 08/19/20 09:29 05/22/20 08:44 Tamsulosin HCl (Flomax) 0.4 mg BEDTIME ORAL 05/17/20 21:00 06/16/20 20:59 05/21/20 20:20 Height (Feet): 6 Height (Inches): 1.00 Weight (Pounds): 200 General Appearance: no apparent distress Cardiovascular: normal rate Respiratory/Chest: lungs clear Abdomen: soft Objective No change Vladislav Torres MD May 22, 2020 15:23
--- NOTE | 2020-05-25 16:33 | Discharge Summary ---
Discharge Summary Discharge Summary _ Date of admission: 05/16/2020 Date of discharge: 05/22/[address] Santana History of Present Illness and Brief Hospital Course Mr. Morris is a 60-year-old male with past medical history of asthma and kidney infection, who presented to the ED for evaluation of left flank pain. Patient a lso reported shortness of breath x1 day. Patient rated the flank pain 8 out of 10 in severity on arrival, and aching in nature. Patient also reported being treated for UTI with antibiotics 1 month ago. Patient's initial EKG was notable for sinus tachycardia on arrival without ST segment changes. Patient tested positive for COVID-19 with rapid gene assay. Initial chest x-ray showed patchy bilateral groundglass alveolar infiltrates most prominent in the lung bases, which was suspicious for pneumonia. Abdomen and pelvis CT with contrast showed evidence for pyelonephritis. Patient's symptoms improved in the ER and he insisted that he go home. However, upon discussion of risks, he decided to stay and he was admitted to the hospital for further management. Patient received IV hydration, analgesia, and antibiotics in the ER. Given his positive COVID-19 test, he was placed in droplet isolation room. Patient initially remained saturating well on room air with normal work of breathing and therefore there was no indication for specific therapy for COVID- evaluation 19. Patient used low-flow oxygen for comfort intermittently but overall was stable on room air. Given history of HIV, patient's home medications were continued including Odefsey and Prezcobix. For his pyelonephritis with E. coli, he was started on ceftriaxone. On admission day 6, patient's ceftriaxone was discontinued and was transitioned to oral Levaquin for discharge. Overall, patient's prognosis remained good throughout his hospitalization. His pain was much better controlled and he continued to receive antibiotics for pyelonephritis. His oxygen requirement was minimal to none despite his COVID-19 positivity. Patient was medically stable for discharge and was discharged home on 05/22/2020. Patient is to continue self-isolation given his recent COVID-19 test. Consultants: Pulmonology Dr. Dunne Nephrology Dr. Prabhakar Infectious disease Dr. Armas Discharge Condition Improved and stable Final diagnoses Dehydration Electrolyte imbalance COVID-19 Pyelonephritis with E. coli E. coli sepsis History of BPH History of HIV History of depression Acidosis Hypertension E. coli bacteremia I have been assigned to dictate discharge summary for this account. Billy Ly May 25, 2020 16:33
== END 2020-05-22 15:15 | disposition home or self-care (01) | DRG 720 ==
LOC: EMR 06:14 → EDBEDREQ 09:43 → 4E 09:48
DX: A41.51 Sepsis due to Escherichia coli [E. coli] (principal); U07.1 COVID-19; J12.82 Pneumonia due to coronavirus disease 2019; E83.42 Hypomagnesemia; N12 Tubulo-interstitial nephritis, not specified as acute or chronic; Z87.440 Personal history of urinary (tract) infections; E11.65 Type 2 diabetes mellitus with hyperglycemia; E87.1 Hypo-osmolality and hyponatremia; R06.03 Acute respiratory distress; Z87.09 Personal history of other diseases of the respiratory system; F32.9 Major depressive disorder, single episode, unspecified; N40.1 Benign prostatic hyperplasia with lower urinary tract symptoms; K21.9 Gastro-esophageal reflux disease without esophagitis; G89.4 Chronic pain syndrome; J45.909 Unspecified asthma, uncomplicated; E86.0 Dehydration
CPT/HCPCS: 36415; 71045; 74177; 80053; 81003; 82306; 82550; 82728; 82977; 83036; 83605; 83615; 83690; 83735; 83880; 84100; 84443; 84484; 84550; 85007; 85025; 85379; 85610; 85730; 86140; 87040; 87086; 87181; 93005; 96361; 96374; 96375; 99285; J2405; J7030; J8499; U0002